=== PATIENT | male | born 1950 | race Caucasian/White ===

== ENCOUNTER → 2017-08-05 12:40 | Outpatient (CLI) | payer MEDICARE, MEDICAID, SELFPAY ==
--- NOTE | 2017-08-05 12:46 | RAD_ITS ---
STUDY: SWALLOWING STUDY REASON FOR EXAM: Male, 66 years old. Dysphagia. TECHNIQUE: The examination was performed with Speech Pathology in attendance. Under fluoroscopic observation, the patient ingested thin barium, thick barium, barium pudding, and barium coated cracker. FLUOROSCOPY TIME: 2:08 minutes/seconds. 2682 spot views were obtained. RADIOLOGIST INVOLVEMENT: Radiologist was present and providing direct supervision. COMPARISON: None. FINDINGS: The following was observed during swallowing of the various mixtures of barium: Thin Barium: Intermittent penetration with silent aspiration with ingestion of thin liquids on rapid swallows. Thick Barium: There was no evidence of aspiration or laryngeal penetration. Barium Pudding: There was no evidence of aspiration or laryngeal penetration. Barium Coated Cracker: There was no evidence of aspiration or laryngeal penetration. RAD/Swallowing Function w/Video IMPRESSION: Intermittent penetration and silent aspiration with ingestion of thin liquids. This improves with the small sips. The swallow study findings were discussed with the patient by the speech pathologist at the conclusion of the examination. Please see speech pathology report for more information and recommendations. Electronically Signed: Nate Santos MD at 14:22 EST Tel [phone], Service support ,
--- NOTE | 2017-08-05 13:00 | SP.MBSS_ITS ---
PRIMARY / SECONDARY DIAGNOSIS: dysphagia (R13.102, R13.14) REFERRING PHYSICIAN: Dr. Shahram Rosario MD CURRENT DIET: mechanical soft textures, thin liquids DENTITION: edentulous MENTAL STATUS: impaired RESPIRATORY STATUS: O2 via room air PREVIOUS MODIFIED BARIUM SWALLOW STUDY: 03/15/2015 MBS revealed moderate oropharyngeal and pharyngoesophageal dysphagia with SILENT aspiration of large sequential swallows of thin liquids 01/01/2014 MBS revealed mild to moderate dysphagia with penetration / ejection of thin and nectar consistencies REASON FOR REFERRAL: Patient is a 66 year old male who resides at a snf referred for a modified barium swallow (MBS) study to objectively assess the Patients oropharyngeal swallow function under fluoroscopy secondary to continued concerns with PO diet tolerance primarily with thin liquids, with the Patient presenting with a long history of dysphagia with silent aspiration noted during the most recent exam. Patients provided caregiver from the Patients snf in addition to the Patients primary home health speech-language pathologist present during the assessment, report the Patient is currently placed on a mechanical soft, thin liquid diet with evolving use and benefit from the chin tuck posture, with thin liquid intake via spoon (though improving tolerance from cup). Patients caregiver reports recent significant reduction in sedative medications with known deleterious effects on deglutition to include Klonopin / Clonazepam (50mg BID to 1mg qAM), Seroquel / Quetiapine (200mg to 50mg in qAM), and Depakote / Valproic acid (2-125mg tablets TID to 1-125mg tablet TID) MEDICAL HISTORY: Intellectual disability, bipolar disorder, aspiration pneumonia, angioedema, hyperlipidemia, hypothyroidism, prior history of violent behavior STUDY FINDINGS: Patient participated in a Modified Barium Swallow (MBS) study on 08/05/2017. Dr. Santos was the radiologist present for this evaluation. This study was recorded in the lateral view and images were sent to PACs for storage. The following consistencies were presented to this patient for analysis of oropharyngeal swallow function: thin liquids, nectar thickened liquids, pudding , and a regular textured, Kare[place] Do[place] cookie. Results of the MBS are as follows: PENETRATION / ASPIRATION SCALE (PEREIRA): 1 = does not enter airway 2 = enters airway/above vocal folds/ejected 3 = enters airway/above vocal folds/not ejected 4 = enters airway/contacts vocal folds/ejected 5 = enters airway/contacts vocal folds/not ejected 6 = enters airway/below vocal folds/ejected 7 = enters airway/below vocal folds/not ejected despite effort 8 = enters airway/below vocal folds/no effort VIDEOFLOROSCOPIC SCALE SCORE (PEREIRA): Grade I = aspiration of material that has penetrated into the laryngeal vestibule, intact cough reflex Grade II = aspiration < 10 % of the bolus, intact cough reflex Grade III = aspiration of < 10 % of the bolus, reduced cough reflex or aspiration of > 10 % of the bolus, intact cough reflex Grade IV = aspiration of > 10 % of the bolus, reduced cough reflex PENETRATION / ASPIRATION SCALE (SCORE) WITH VIDEOFLOROSCOPIC SCALE SCORE: Thin liquid - 5 mL tsp.: 1 Thin liquids via cup (sequential swallows): 8 - Grade III Thin liquids via cup (single sip): 5 Thin liquids via cup (single sip): 5 Thin liquids via straw (chin tuck): 2 Thin liquids via straw (chin tuck): 1 Thin liquids via straw (chin tuck): 1 Thin liquids via straw (chin tuck): 1 Thin liquids via straw (sequential swallows - chin tuck): 8 - Grade III [place] thickened liquids via cup (single sip): 5 [place] thickened liquids via cup (single sip): 7 - Grade II Pudding via spoon: 1, 8 - Grade III Pudding via spoon: 1 Regular textured cookie: could not view* Thin liquids via straw (chin tuck): could not view* * denotes difficulty with full viewing of images due to frequent movement denotes delayed cough response (3-5 seconds) denotes silent aspiration of previously penetrated material (likely nectar thickened liquids) IMPRESSION: DIAGNOSIS: moderate oropharyngeal dysphagia (R13.12) ORAL PHASE CHARACTERIZED BY: LABIAL SEAL: no labial escape (improved; however difficulty with viewing appreciated due to excessive anterior movement) TONGUE CONTROL DURING BOLUS MANIPULATION: posterior bolus escape fluctuating between less than / greater than half of bolus during thin liquid and nectar thickened liquid intake BOLUS PREPARATION / MASTICATION: slow prolonged chewing/mashing with complete recollection (improved) BOLUS TRANSPORT / LINGUAL MOTION: brisk tongue motion (improved) ORAL RESIDUE: residue collection on oral structures (primarily the posterior lingual surface) PHARYNGEAL PHASE CHARACTERIZED BY: INITIATION OF PHARYNGEAL SWALLOW: bolus head in pyriforms at first hyoid excursion during trials of thin liquid via cup; bolus head in valleculae at first hyoid excursion across remaining trials SOFT PALATE ELEVATION: no bolus between soft palate and pharyngeal wall LARYNGEAL ELEVATION: complete superior movement of thyroid cartilage with complete approximation of arytenoids cartilage to epiglottic petiole (improved) ANTERIOR HYOID EXCURSION: partial anterior movement EPIGLOTTIC MOVEMENT: complete epiglottic inversion LARYNGEAL VESTIBULE CLOSURE AT HEIGHT OF SWALLOW: intermittent incomplete laryngeal vestibule closure with narrow column of air/contrast in laryngeal vestibule PHARYNGEAL STRIPPING WAVE: pharyngeal stripping wave present / complete PHARYNGOESOPHAGEAL SEGMENT OPENING: partial distension and partial duration; partial obstruction of flow (improved) TONGUE BASE RETRACTION: trace column of contrast between tongue base and posterior pharyngeal wall (improved) PHARYNGEAL RESIDUE: intermittent collection of residue within or on pharyngeal structures (valleculae; improved) ESOPHAGEAL PHASE CHARACTERIZED BY: ESOPHAGEAL BOLUS CLEARANCE IN THE UPRIGHT POSITION: intermittent trace esophageal retention with retrograde flow below pharyngoesophageal segment ( improved) EFFECTS OF TREATMENT STRATEGIES ATTEMPTED: Chin tuck posture = effective Liquid chaser = effective Reduced bolus size = effective DIET TEXTURE RECOMMENDATIONS: Will recommend a mechanical soft textured, thin liquid diet. COMPENSATORY STRATEGIES RECOMMENDED: Supervision with assistance as needed, chin tuck primarily with thin liquids, reduced bolus volume, alternate bites and sips at reasonable intervals, avoid mixed consistencies, medications with purees INTERPRETATION OF RESULTS: Patient presents with moderate oropharyngeal dysphagia (R13.12) likely associated with a combination of mechanical factors (moderate minimal obstructive cricopharyngeal bar), iatrogenic factors, and complicated by baseline Intellectual disability. Oral phase primarily marked by suboptimal lingual control resulting in frequent posterior bolus loss prior to swallow onset contributing to prandial and pre-prandial penetration and aspiration; and mastication inefficiency (mild; albeit effective). Pharyngeal phase primarily marked by delayed pharyngeal swallow onset timing resulting in suboptimal bolus location upon swallow onset; reduced closure of the airway during deglutition attributed to reduced anterior hyoid excursion resulting in inconsistent laryngeal vestibule closure / pressure; all contributing to prandial penetration and aspiration of thin liquids without reduction in bolus size and execution of the chin tuck posture. Inconsistent laryngeal vestibule pressure generated to consistently expel penetrated material. Noted insufficient and inconsistent cough response to expel penetrated material / laryngotracheal aspiration. 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 Overall improved pharyngeal motility in comparison to the previous study. All deficits ameliorated sufficiently with bolus volume adjustments and execution of the chin tuck posture. Patient noted to SILENTLY aspirate with thin liquids, and suspected to SILENTLY aspirate previously penetrated nectar thickened liquids during succeeding trials, with clinical assessment at bedside relying on identification of classic overt signs and symptoms of aspiration unreliable. RECOMMENDATIONS: Recommendations for continued thin liquid diet texture placement made in part due to the Patients reported improved adherence to recommendations with familiar individuals (as reported by staff members familiar with the Patient), the Patients tendency to aspirate with nectar thickened liquids and previous intolerance of aspiration of thickened liquids, though would encourage caution if the Patient is unable to reliably execute recommended aspiration precautions , as the Patient is at higher risk of pulmonary complications due to the continued presence of silent aspiration. Recommend considering a modified [place] Free Water Protocol (FFWP), with frequent oral care and preference for thin liquid water to maintain the integrity of the oral mucosa and reduce overall risk of harmful oral pathogens and subsequent aspiration of oral bacteria. Patient requires intensive skilled speech-language intervention targeting continued diet texture management; training and implementation of recommended compensatory strategies; training, implementation, and Patient education regarding implementation of a modified FFWP as needed; and caregiver training targeting meal preparation / aspiration precautions to ensure sufficient execution, though caregivers appearing to demonstrate excellent awareness and comprehension. ADDITIONAL COMMENTS/RECOMMENDATIONS: Results and recommendations were discussed with the Patient and Patients caregivers immediately following MBS completion, with all verbalizing understanding and agreement with all recommendations and education provided. Both the Patient and the Patient's caregiver requesting this clinician to relay results to the Patients green building engineer post session. IMAGE COUNT: [id number] G-CODES: SWALLOWING [id number] Current Status: CJ SWALLOWING [id number] Goal Status: CI SWALLOWING [id number] Discharge Status: CJ
== END ==
PROVIDERS: Family Provider Family Medicine Geriatric Medicine; PCP Family Medicine Geriatric Medicine; Visit Provider Family Medicine Geriatric Medicine
DX: Z87.19 Personal history of other diseases of the digestive system (principal)
CPT/HCPCS: 74230; 92611; G8996; G8997; G8998

== ENCOUNTER → 2018-01-28 15:05 | Outpatient (CLI) | payer MEDICARE, MEDICAID, SELFPAY ==
[2018-01-28 15:34] LABS: Absolute Lymphocyte Count 1.96 X10^3/ul (0.83-4.51); Absolute Neutrophil Count 2.7 X10^3/uL (2.0-7.7); Basophil# 0.02 X10^3/uL; Basophil% 0.4 % (0-1); Eosinophil# 0.03 X10^3/uL; Eosinophils% 0.6 % (0-5); Hematocrit 42.1 % (40-54); Hemoglobin 14.3 g/dl (13.0-16.5); Lymphocyte # 1.96 X10^3/ul (4.0); Lymphocyte % 37.8 % (19-41); Mean Corpuscular Hgb 30.9 pg (27.0-32.0); Mean Corpuscular Volume 90.9 fL (80-94); Mean Platelet Vol. 10.4 fl (6.2-12.0); Monocyte# 0.52 X10^3/uL; Neutrophil # 2.65 X10^3/uL (2.7-7.7); Platelet Count 258 K/mm3 (150-450); RBC Distribution Width CV 13.4 % (11.6-14.6); RBC Distribution Width SD 44.3 fl (35.1-43.9); Red Blood Count 4.63 M/mm3 (4.6-6.2); White Blood Count 5.2 K/mm3 (4.4-11.0)
[2018-01-28 15:41] LABS: POSITIVE COUNT NO; POSITIVE DIFFERENTIAL NO; POSITIVE MORPHOLOGY NO
== END ==
PROVIDERS: Family Provider Family Medicine Geriatric Medicine; PCP Family Medicine Geriatric Medicine; Visit Provider Family Medicine Geriatric Medicine
DX: R50.9 Fever, unspecified (principal)
CPT/HCPCS: 36415; 74018; 85025; 87040; 87086; 87633

== ENCOUNTER → 2018-02-20 07:34 | Outpatient (CLI) | payer MEDICARE, MEDICAID, SELFPAY ==
[2018-02-20 07:58] LABS: Platelet Count 231 K/mm3 (150-450)
[2018-02-20 08:21] LABS: AST(SGOT) 17 U/L (15-37); Alanine Aminotransfer ALT/SGPT 17 U/L (16-61); Valproic Acid (Depakene) Level 55 ug/mL (50-100)
== END ==
PROVIDERS: Family Provider Family Medicine Geriatric Medicine; PCP Family Medicine Geriatric Medicine; Visit Provider Psychiatry & Neurology Psychiatry
DX: Z79.899 Other long term (current) drug therapy (principal)
CPT/HCPCS: 36415; 80164; 84450; 84460; 85049

== ENCOUNTER → 2018-03-04 14:11 | Outpatient (CLI) | payer MEDICARE, MEDICAID, SELFPAY ==
[2018-03-04 16:29] LABS: Absolute Lymphocyte Count 2.77 X10^3/ul (0.83-4.51); Absolute Neutrophil Count 2.5 X10^3/uL (2.0-7.7); Basophil# 0.04 X10^3/uL; Basophil% 0.7 % (0-1); Eosinophils% 1.6 % (0-5); Hematocrit 42.4 % (40-54); Hemoglobin 14.2 g/dl (13.0-16.5); Lymphocyte # 2.77 X10^3/ul (4.0); Lymphocyte % 45.5 % (19-41); Mean Corp Hgb Conc 33.5 g/gl (32-36); Mean Corpuscular Hgb 30.6 pg (27.0-32.0); Mean Corpuscular Volume 91.4 fL (80-94); Mean Platelet Vol. 10.9 fl (6.2-12.0); Monocyte# 0.67 X10^3/uL; Platelet Count 252 K/mm3 (150-450); RBC Distribution Width CV 13.6 % (11.6-14.6); RBC Distribution Width SD 44.8 fl (35.1-43.9); Red Blood Count 4.64 M/mm3 (4.6-6.2); White Blood Count 6.1 K/mm3 (4.4-11.0)
[2018-03-04 16:33] LABS: Vitamin D,25 Hydroxy 12.9 ng/mL (29.95-100.01)
[2018-03-04 16:37] LABS: POSITIVE COUNT NO; POSITIVE DIFFERENTIAL NO; POSITIVE MORPHOLOGY NO
[2018-03-04 16:41] LABS: ALB/GLOB Ratio 0.8 RATIO (0.9-2.4); AST(SGOT) 17 U/L (15-37); Alanine Aminotransfer ALT/SGPT 19 U/L (16-61); Albumin, Serum 3.5 g/dL (3.2-5.0); Alkaline Phosphatase 123 U/L (45-117); Anion Gap 6 (5-15); BUN 7 mg/dL (7-18); BUN/Creat Ratio 8.1 RATIO (10-20); Calcium,Total 8.7 mg/dL (8.5-10.1); Chloride 104 mmol/L (98-107); Creatinine, Serum 0.87 mg/dL (0.70-1.30); EST Glomerular Filtration Rate 93 mL/min (>60); Est Glom Filt Rate - Afr Amer 113 mL/min (>60); Globulin 4.4 g/dL (2.2-4.2); Glucose 76 mg/dL (74-106); PSA,Total - Annual Screen 1.78 ng/mL (0.00-4.00); Potassium 3.4 mmol/L (3.5-5.1); Protein, Total 7.9 g/dL (6.4-8.2); Sodium Level 141 mmol/L (136-145); Thyroid Stim Hormone (TSH) 0.12 uIU/mL (0.358-3.74)
[2018-03-07 09:32] LABS: Hep C Antibodies <0.1 s/co ratio (0.0-0.9)
== END ==
PROVIDERS: Family Provider Family Medicine Geriatric Medicine; PCP Family Medicine Geriatric Medicine; Visit Provider Family Medicine Geriatric Medicine
DX: E55.9 Vitamin D deficiency, unspecified (principal); R53.83 Other fatigue; Z12.5 Encounter for screening for malignant neoplasm of prostate; Z13.89 Encounter for screening for other disorder
CPT/HCPCS: 36415; 80053; 82306; 84153; 84443; 85025; 86803; G0103

== ENCOUNTER → 2018-03-28 08:43 | Outpatient (CLI) | payer MEDICARE, MEDICAID, SELFPAY ==
[2018-03-28 09:55] LABS: Anion Gap 6 (5-15); BUN 7 mg/dL (7-18); BUN/Creat Ratio 10.1 RATIO (10-20); Calcium,Total 8.1 mg/dL (8.5-10.1); Chloride 107 mmol/L (98-107); Creatinine, Serum 0.69 mg/dL (0.70-1.30); EST Glomerular Filtration Rate 121 mL/min (>60); Est Glom Filt Rate - Afr Amer 147 mL/min (>60); Glucose 81 mg/dL (74-106); Potassium 3.8 mmol/L (3.5-5.1); Sodium Level 145 mmol/L (136-145)
== END ==
PROVIDERS: Family Provider Family Medicine Geriatric Medicine; PCP Family Medicine Geriatric Medicine; Referring Provider Family Medicine Geriatric Medicine; Visit Provider Family Medicine Geriatric Medicine
DX: E87.6 Hypokalemia (principal)
CPT/HCPCS: 36415; 80048

== ENCOUNTER 2018-04-30 08:00 | Outpatient (RCR) | payer MEDICARE, MEDICAID, SELFPAY ==
--- NOTE | 2018-03-26 11:07 | HP.OTEVAL_ITS ---
Patient's Visit Information BRY BANERJEE is a 67 year old M, referred to Occupational Therapy by Goran Rosario, with a diagnosis of Parkinson Disease. Date of Evaluation: 03/26/18 Occupational Therapist: Mónica Beck - Subjective Subjective: Pt seen for initial occupational therapy evaluation for generalized decreased BUE strength and decreased independence with self feeding skills demonstrating increased spillage of food with increased fatigue to hold silverware and to get food to his mouth. Pt has diagnosis of Parkinson's. He lives in a nursing home with one roomate and has 24hr care. He requires assist with all BADL's. He participates with workshop during the day. AMB no device with hand held assist. Uses a heavy ceramic bowl for eatting and switches between regular silverware and weighted silverware. Pt is right hand dominent. - Objective Objective/Observation: Pt's caregiver states decreased independence with self feeding skills and increased fatigue with self feeding. - ROM ROM Comments: BUE WFL - Strength Strength Comments: Pt unable to follow directions to complete MMT secondary to cognitive status. Pt was able to push therapists hands down towards floor demonstrating decreased generalized BUE strength. - Edema Other: No edema noted - Sensation Sensation Comments: Unknown, pt unable to understand question secondary to decreased cognition - DASH-Disabilities of Arm, Shoulder& Hand DASH Sum: 120 - Goals Goal:: Pt will demo increased BUE strength 4/5 to assist with BADL's and functional transfers. Goal:: Pt will be able to complete self feeding tasks with SBA level with moderate verbal cues needed to initate and complete tasks correctly with minimal spillage of food in 3/4 trials Goal:: Pt/caregiver will be educated on self feeding techniques and adaptive equipment to assist with self feeding skills to increase pt's quality of life with 75% accuracy. Goal:: Pt/caregive will be educated on BUE HEP with good understanding and demo 75% x. Goal:: Pt/caregive will be educated on DME/AE to assist with BADLs with increased safety as well as education on adaptive technqiues and compensatory strategies to assist with BADLs to increase pts quality of life with good understanding and demo 100%x. - Rehabilitation General Assessment: Pt demonstrated decreased generalied BUE strength and decreased independence with self feeding tasks. Pt would benefit from direct occupational therapy services to increase BUE strength, educate pt's caregivers on BUE HEP, increase independence with self feeding tasks, educate staff on DME/AE to increase independence and safety with BADLs as well as adaptive techniques, compensatory strategies, cues needed to assist with BADLs to increase pt's independence and quality of life. Rehabilitation Potential: Good - Anticipated Interventions Anticipated Interventions: Strengthening, Joint Protection/Energy Conservation, Fine Motor Coord/Jaime, ADL Training, Education re assistive Equipment, Caregiver Training, Home Program - Visit Plan Frequency: 1-2x /Week Duration: 4-6 Weeks General Plan: Pt would benefit from direct occupational therapy services to increase BUE strength, educate pt's caregivers on BUE HEP, increase independence with self feeding tasks, educate staff on DME/AE to increase independence and safety with BADLs as well as adaptive techniques, compensatory strategies, cues needed to assist with BADLs to increase pt's independence and quality of life. TEXT: Thank you for the opportunity to evaluate your patient. For Medicare and Medicare HMO plans, please review the plan of care and approve it. It will need to be FAXED BACK to us at [phone] for Medicare purposes. Please let me know if there are questions or concerns regarding this plan of care. Physician Signature: Date:
--- NOTE | 2018-03-26 16:02 | HP.PTEVAL_ITS ---
Patient's Visit Information BRY BANERJEE is a 67 year old M referred to Physical Therapy by Goran Rosario with a diagnosis of Parkinson's Disease. Date of Evaluation: 03/26/18 Physical Therapist: Morena Cortez - Visit Plan Frequency: 2x /Week Duration: 4 Weeks Plan: Gait belt. Focus on LE strength, balance, walking endurance while encouraging neck and trunk upright-work on posture exercises. - Subjective Subjective: Caregiver is unsure of when pt. was diagnosed with Parkinson's Disease. Sometimes doing well, sometimes lethargic; comes in cycles. Caregiver states that pt. needs a gait belt because gets off balance. Falling back asleep in the morning. Cannot pick up operator spoon. Times when gait is off, knees buckle and forward leaning. Pt. is frustrated when he cannot hold spoon, so sometimes does not want to eat. Eats better with regular spoon vs. heavy. Heavy bowls. This week has been good. Sometimes so lethargic and drooling, that caregivers have to keep pt. awake. Pt. and caregivers are afraid of pt. falling. Pt. slouches forward and has no energy to keep upright. Neck, back and head hurt. Caregiver states that pt. is intectually very bright and will throw fits trying to get what he wants. Needs to build up arm strength. Does not want to be fully reliant on staff for feeding. Pt. resident at [facility] through [place]. 31/12 supervision. Takes a while to get out chair, uses hands of caregiver for assistance and to steady gait. Tries to play duck duck goose and leans forward. Difficult time using restroom. Complete help showering. Attends work shop, draws, crafts, field trips, activities- no PT/OT. Aggressive behavior in past at work shop. Uses wheelchair for long distances. Sometimes needs to stop when walking due to fatigue. Loves to sit outside when weather warm. Does not sit still, constantly up and moving. Neurologist appointment a week from Saturday. Ramp at residential. Some steps into van is difficult due to unsteadiness. Fell on hands and knees from running forward at workshop last month. Also recently fell in the morning at the table and hit head from being top heavy. Sometimes, neck, head, and back hurt from slouching; takes Tylenol. HADLEY maybe twice a week from slouching. Will cry to get what he wants. Cannot put on socks, but can put on slippers. Able to navigate residential. Staff cooks, cleans, laundry. Pt. can carry cup around to sink and light activity. Sleep well at nights, but gets up between 9-12 to look for caregiver's car and gets upset when she leaves. Taking melatonin, nasapam. Caregiver has experience with taking pt. through exercise. Pt. able to run, but leans forward significantly. PMH: UTI not too long ago, thryoid, taking potassium. No pain medication, see chart for medication list. Goals: balance, strength, endurance, upright posture. - Objective Gait: ambulates with gait belt and contact guard for steadiness. Forward flexed neck and trunk, normal cynthia. Stairs: ascend stairs reciprocally with 2 HR and contact guard with gait belt, decreased speed but good form. Descend stairs step to pattern 2 HR and min A with gait belt; verbal cues to keep hand on rail. AROM: cervical ext. to neutral, flex. WNL, rotation limited 50%, lumbar flex. WNL, LE WFL. PROM: shoulder flex., abd., IR/ER WFL. Able to heel raise with demonstration; difficulty understanding toe raise and SL balance demonstration and instruction. Strength: LE approx 4/5 throughout; core poor. Flexibility: hamstring and gastroc moderate restriction. - Goals Goal 1:: Pt. will be I with HEP and progressions. Goal Time Frame: 4-6 Weeks Goal 2:: Pt. will increase LE strength to 4+/5. Goal Time Frame: 4-6 Weeks Goal 3:: Pt. will demonstrate correct upright posture throughout treatment session. Goal Time Frame: 4-6 Weeks Goal 4:: Pt. will demonstrate modified single leg stance for 10 seconds bilaterally. Goal Time Frame: 4-6 Weeks Goal 5:: Pt. will ambulate 350' without stopping with contact guard and no device. Goal Time Frame: 4-6 Weeks - Rehabilitation Potential Physical Therapy Diagnosis: Pt. presents with hypomobility. Poor neck and trunk posture, decreased balance, LE strength, and endurance limiting pt. from self care tasks and safe functional mobility. Rehabilitation Potential: Fair - Anticipated Interventions Patient/Client Instruction: Educate patient on: Benefits of Fitness Program For the Purpose of:: To improve nutrient delivery to tissue Therapeutic Exercise to Include: Strength training, Power training, Endurance training, Balance training, Postural training, Flexibilty training, Gait and locomotor training, Dynamic Lumbar Stabilization, Scapular Strength/Stabilization For the Purpose of:: To increase ROM, To improve muscle performance and motor function, To improve ability to perform ADL's, To increase flexibility/ROM, To improve endurance, To improve balance, To improve safety with gait, To improve safety Cryotherapy (ice pack, ice massage): Yes Thermo therapy (hot pack): Yes For the Purpose of:: To decrease pain Thank you for the opportunity to evaluate your patient. For Medicare and Medicare HMO plans, please review the plan of care and approve it. It will need to be FAXED BACK to us at [phone] for Medicare purposes. Please let me know if there are questions or concerns regarding this plan of care. Physician Signature: __Date:
--- NOTE | 2018-04-16 13:36 | HP.OTDCSUM_ITS ---
HP - OT D/C Summary It has been my pleasure to treat BRY BANERJEE under orders from Goran Rosario, for the diagnosis of Parkinson Disease for a total of 6 visit(s). Please see the following information for a summary of their discharge status. - Objective Objective/Function: increase BUE strength and independence with self feeding skills - Goals Patient Goals: Regain Strength, Improve Fine Motor Skills, Use Hand/Wrist/Arm Normally Again, Be More Independent in ADLS, Resume Former Household Responsibilities (Cooking,Cleaning,Yard, etc.), Resume Hobbies Goal:: Pt will demo increased BUE strength 4/5 to assist with BADL's and functional transfers. Goal:: Pt will be able to complete self feeding tasks with SBA level with moderate verbal cues needed to initate and complete tasks correctly with minimal spillage of food in 3/4 trials Goal:: Pt/caregiver will be educated on self feeding techniques and adaptive equipment to assist with self feeding skills to increase pt's quality of life w ith 75% accuracy. Goal:: Pt/caregive will be educated on BUE HEP with good understanding and demo 75% x. Goal:: Pt/caregive will be educated on DME/AE to assist with BADLs with increased safety as well as education on adaptive technqiues and compensatory strategies to assist with BADLs to increase pts quality of life with good understanding and demo 100%x. - Plan Plan: d/c OT services. Pt unable to understand DASH to complete for d/c. - D/C Information Discharge Comments: Pt has progressed with BUE strengthening activities and exercises. Pt and staff member have been educated on BUE HEP with yellow theraband with good understanding and demo. Pt and staff member have been educated on adaptive techniques, compensatory strategies and different AE to assist with self feeding skills and BADLs with good understanding and demo. Staff member states he is doing better with self feeding using regular utensils still requiring minimall assist to scoop food towards the end. Pt unable to understand MMT and complete formal MMT for d/c, however pt progressing with amount of exercises completed using 2# and using arm bike for longer amount of time to indicate increased BUE strength. At this time pt demo no need for further skilled OT interventions. D/C OT services. If there are questions or concerns regarding this patient's occupational therapy, please fell free to call me at [phone]. Thank you for the referral of this patient. Sincerely, Mónica Beck
--- NOTE | 2018-04-30 08:35 | HP.PTDCSUM_ITS ---
HP - PT D/C Summary It has been my pleasure to treat BRY BANERJEE under orders from Goran Rosario, for the diagnosis of Parkinson's Disease for a total of 9 visit(s). Discharge Date: Please see the following information for a summary of their discharge status. - Subjective Subjective: Patient caregiver reports that he likes to do exercises at home. No falls since start of PT at home. No stairs at home- but the staff watches him around curbs and getting in/out of the van. Does not want to backwards. - Objective Objective/Function: Gait: ambulates indpendently with SBA from caregiver but does not reach for her as he did at initial evaluation. Forward flexed neck and trunk, normal cynthia. Stairs: ascend stairs reciprocally with 2 HR SBA Descend stairs step to pattern 2 HR and CGA; verbal cues to keep hand on rail. AROM: cervical ext. to neutral, flex. WNL, rotation limited 50%, lumbar flex. WNL, LE WFL. PROM: shoulder flex., abd., IR/ER WFL. Able to heel raise with demonstration Strength: LE approx 4+/5 throughout; core fair. Flexibility: hams tring and gastroc moderate restriction. - Goals Goal 1:: Pt. will be I with HEP and progressions. Goal Progress: Goal Met Goal 2:: Pt. will increase LE strength to 4+/5. Goal Progress: Goal Met Goal 3:: Pt. will demonstrate correct upright posture throughout treatment session. Goal Progress: Progressing Goal 4:: Pt. will demonstrate modified single leg stance for 10 seconds bilaterally. Goal Progress: Progressing Goal 5:: Pt. will ambulate 350' without stopping with contact guard and no device. Goal Progress: Goal Met - Plan Plan: Discharge to I HEP - D/C Information If there are questions or concerns regarding this patient's physical therapy, please feel free to call me at [phone]. Thank you for the referral of this patient. Sincerely, Morena Cortez
== END 2018-04-30 19:01 | disposition home or self-care (01) ==
LOC: PT 08:00
PROVIDERS: Family Provider Family Medicine Geriatric Medicine; PCP Family Medicine Geriatric Medicine; Referring Provider Family Medicine Geriatric Medicine; Visit Provider Family Medicine Geriatric Medicine
DX: G20 Parkinson's disease (principal)
CPT/HCPCS: 97110; 97162; 97164; 97165; 97166; 97530

== ENCOUNTER → 2018-05-14 09:01 | Outpatient (CLI) | payer MEDICARE, MEDICAID, SELFPAY | PROVIDERS: Family Provider Family Medicine Geriatric Medicine; PCP Family Medicine Geriatric Medicine; Referring Provider Family Medicine Geriatric Medicine; Visit Provider Family Medicine Geriatric Medicine | DX: E03.9 Hypothyroidism, unspecified (principal) | CPT/HCPCS: 36415; 84443 ==

== ENCOUNTER → 2018-08-26 08:32 | Outpatient (CLI) | payer MEDICARE, MEDICAID, SELFPAY ==
[2018-08-26 10:25] LABS: Platelet Count 236 K/mm3 (150-450)
[2018-08-26 10:48] LABS: Valproic Acid (Depakene) Level 42 ug/mL (50-100)
[2018-08-26 10:50] LABS: AST(SGOT) 23 U/L (15-37); Alanine Aminotransfer ALT/SGPT 21 U/L (16-61)
== END ==
PROVIDERS: Family Provider Family Medicine Geriatric Medicine; PCP Family Medicine Geriatric Medicine; Referring Provider Psychiatry & Neurology Psychiatry; Visit Provider Psychiatry & Neurology Psychiatry
DX: R53.83 Other fatigue (principal); F19.10 Other psychoactive substance abuse, uncomplicated; Z79.899 Other long term (current) drug therapy
CPT/HCPCS: 36415; 80164; 84450; 84460; 85049

== ENCOUNTER → 2018-09-03 13:12 | Outpatient (CLI) | payer MEDICARE, MEDICAID, SELFPAY ==
[2018-09-03 15:36] LABS: Absolute Lymphocyte Count 2.23 X10^3/ul (0.83-4.51); Absolute Neutrophil Count 2.5 X10^3/uL (2.0-7.7); Basophil# 0.02 X10^3/uL; Basophil% 0.4 % (0-1); Eosinophil# 0.06 X10^3/uL; Eosinophils% 1.1 % (0-5); Hematocrit 43.2 % (40-54); Hemoglobin 13.8 g/dl (13.0-16.5); Lymphocyte # 2.23 X10^3/ul (4.0); Lymphocyte % 41.8 % (19-41); Mean Corp Hgb Conc 31.9 g/gl (32-36); Mean Corpuscular Hgb 30.1 pg (27.0-32.0); Mean Corpuscular Volume 94.1 fL (80-94); Mean Platelet Vol. 10.4 fl (6.2-12.0); Monocyte# 0.56 X10^3/uL; Monocyte% 10.5 % (0-10); Neutrophil # 2.46 X10^3/uL (2.7-7.7); Platelet Count 233 K/mm3 (150-450); RBC Distribution Width CV 13.8 % (11.6-14.6); RBC Distribution Width SD 47.5 fl (35.1-43.9); Red Blood Count 4.59 M/mm3 (4.6-6.2); White Blood Count 5.3 K/mm3 (4.4-11.0)
[2018-09-03 15:49] LABS: POSITIVE COUNT NO; POSITIVE DIFFERENTIAL NO; POSITIVE MORPHOLOGY NO
[2018-09-03 16:08] LABS: ALB/GLOB Ratio 0.9 RATIO (0.9-2.4); AST(SGOT) 18 U/L (15-37); Alanine Aminotransfer ALT/SGPT 20 U/L (16-61); Albumin, Serum 3.7 g/dL (3.2-5.0); Alkaline Phosphatase 100 U/L (45-117); Anion Gap 6 (5-15); BUN 9 mg/dL (7-18); BUN/Creat Ratio 9.6 RATIO (10-20); Calcium,Total 8.4 mg/dL (8.5-10.1); Chloride 106 mmol/L (98-107); Creatinine, Serum 0.93 mg/dL (0.70-1.30); EST Glomerular Filtration Rate 86 mL/min (>60); Est Glom Filt Rate - Afr Amer 104 mL/min (>60); Glucose 80 mg/dL (74-106); Potassium 3.6 mmol/L (3.5-5.1); Protein, Total 7.7 g/dL (6.4-8.2); Sodium Level 143 mmol/L (136-145); Thyroid Stim Hormone (TSH) 2.64 uIU/mL (0.358-3.74)
[2018-09-03 16:09] LABS: Vitamin D,25 Hydroxy 72.6 ng/mL (29.95-100.01)
== END ==
PROVIDERS: Family Provider Family Medicine Geriatric Medicine; PCP Family Medicine Geriatric Medicine; Visit Provider Family Medicine Geriatric Medicine
DX: E55.9 Vitamin D deficiency, unspecified (principal); R53.83 Other fatigue
CPT/HCPCS: 36415; 80053; 82306; 84443; 85025

== ENCOUNTER → 2019-02-13 | Outpatient (CLI) | payer MEDICARE, MEDICAID, SELFPAY ==
[2019-02-13 12:56] LABS: Absolute Lymphocyte Count 2.25 X10^3/uL (0.83-4.51); Absolute Neutrophil Count 1.5 X10^3/uL (2.0-7.7); Basophil# 0.03 X10^3/uL; Basophil% 0.7 % (0-1); Eosinophil# 0.05 X10^3/uL; Eosinophils% 1.2 % (0-5); Hematocrit 45.4 % (40-54); Lymphocyte # 2.25 X10^3/ul (4.0); Lymphocyte % 52.8 % (19-41); Mean Corpuscular Hgb 30.5 pg (27.0-32.0); Mean Corpuscular Volume 92.5 fL (80-94); Mean Platelet Vol. 10.4 fl (6.2-12.0); Monocyte% 9.4 % (0-10); NRBC Flagged by Analyzer 0 % (0-5); Neutrophil # 1.52 X10^3/uL (2.7-7.7); Neutrophil % 35.7 % (47-70); Platelet Count 216 K/mm3 (150-450); RBC Distribution Width CV 12.9 % (11.6-14.6); RBC Distribution Width SD 44.2 fl (35.1-43.9); Red Blood Count 4.91 M/mm3 (4.6-6.2); White Blood Count 4.3 K/mm3 (4.4-11.0)
[2019-02-13 13:21] LABS: ALB/GLOB Ratio 0.8 RATIO (0.9-2.4); AST(SGOT) 22 U/L (15-37); Alanine Aminotransfer ALT/SGPT 21 U/L (16-61); Albumin, Serum 3.6 g/dL (3.2-5.0); Alkaline Phosphatase 112 U/L (45-117); Anion Gap 4 (5-15); BUN 13 mg/dL (7-18); BUN/Creat Ratio 13.4 RATIO (10-20); Calcium,Total 8.9 mg/dL (8.5-10.1); Chloride 103 mmol/L (98-107); Creatinine, Serum 0.97 mg/dL (0.70-1.30); EST Glomerular Filtration Rate 82 mL/min (>60); Est Glom Filt Rate - Afr Amer 99 mL/min (>60); Globulin 4.7 g/dL (2.2-4.2); Glucose 85 mg/dL (74-106); Potassium 3.6 mmol/L (3.5-5.1); Protein, Total 8.3 g/dL (6.4-8.2); Sodium Level 139 mmol/L (136-145)
== END | disposition home or self-care (01) ==
PROVIDERS: Family Provider Family Medicine Geriatric Medicine; PCP Family Medicine Geriatric Medicine; Visit Provider Family Medicine Geriatric Medicine
DX: R40.0 Somnolence (principal)
CPT/HCPCS: 36415; 80053; 84443; 85025

== ENCOUNTER → 2019-02-18 | Outpatient (CLI) | payer MEDICARE, MEDICAID, SELFPAY ==
[2019-02-18 09:40] LABS: Platelet Count 231 K/mm3 (150-450)
[2019-02-18 10:10] LABS: AST(SGOT) 19 U/L (15-37); Alanine Aminotransfer ALT/SGPT 19 U/L (16-61)
[2019-02-18 10:21] LABS: Valproic Acid (Depakene) Level 53 ug/mL (50-100)
== END | disposition home or self-care (01) ==
PROVIDERS: Family Provider Family Medicine Geriatric Medicine; PCP Family Medicine Geriatric Medicine; Referring Provider Psychiatry & Neurology Psychiatry; Visit Provider Psychiatry & Neurology Psychiatry
DX: Z79.899 Other long term (current) drug therapy (principal)
CPT/HCPCS: 36415; 80164; 82140; 84450; 84460; 85049

== ENCOUNTER → 2019-03-05 | Outpatient (CLI) | payer MEDICARE, MEDICAID, SELFPAY ==
[2019-03-05 11:44] LABS: Absolute Neutrophil Count 2.2 X10^3/uL (2.0-7.7); Basophil# 0.04 X10^3/uL; Basophil% 0.8 % (0-1); Eosinophil# 0.06 X10^3/uL; Eosinophils% 1.2 % (0-5); Hematocrit 47.3 % (40-54); Hemoglobin 15.4 g/dL (13.0-16.5); Lymphocyte % 47.2 % (19-41); Mean Corp Hgb Conc 32.6 g/dL (32-36); Mean Platelet Vol. 11.1 fl (6.2-12.0); Monocyte# 0.41 X10^3/uL; Monocyte% 8.1 % (0-10); NRBC Flagged by Analyzer 0 % (0-5); Neutrophil # 2.17 X10^3/uL (2.7-7.7); Neutrophil % 42.5 % (47-70); Platelet Count 251 K/mm3 (150-450); RBC Distribution Width CV 13.1 % (11.6-14.6); RBC Distribution Width SD 44.5 fl (35.1-43.9); Red Blood Count 5.14 M/mm3 (4.6-6.2); White Blood Count 5.1 K/mm3 (4.4-11.0)
[2019-03-05 12:03] LABS: ALB/GLOB Ratio 0.8 RATIO (0.9-2.4); AST(SGOT) 22 U/L (15-37); Alanine Aminotransfer ALT/SGPT 22 U/L (16-61); Albumin, Serum 3.9 g/dL (3.2-5.0); Alkaline Phosphatase 150 U/L (45-117); Anion Gap 5 (5-15); BUN 7 mg/dL (7-18); BUN/Creat Ratio 6.9 RATIO (10-20); Calcium,Total 9.6 mg/dL (8.5-10.1); Chloride 104 mmol/L (98-107); Creatinine, Serum 1.01 mg/dL (0.70-1.30); EST Glomerular Filtration Rate 78 mL/min (>60); Est Glom Filt Rate - Afr Amer 94 mL/min (>60); Glucose 86 mg/dL (74-106); PSA,Total - Annual Screen 2.29 ng/mL (0.00-4.00); Potassium 3.8 mmol/L (3.5-5.1); Protein, Total 8.9 g/dL (6.4-8.2); Sodium Level 139 mmol/L (136-145); Thyroid Stim Hormone (TSH) 3.61 uIU/mL (0.358-3.74)
== END | disposition home or self-care (01) ==
LOC: POLAB3 09:21
PROVIDERS: Family Provider Family Medicine Geriatric Medicine; PCP Family Medicine Geriatric Medicine; Visit Provider Family Medicine Geriatric Medicine
DX: E55.9 Vitamin D deficiency, unspecified (principal); R53.83 Other fatigue; Z12.5 Encounter for screening for malignant neoplasm of prostate
CPT/HCPCS: 36415; 80053; 82306; 84153; 84443; 85025; G0103

== ENCOUNTER → 2019-07-10 08:38 | Outpatient (CLI) | payer MEDICARE, MEDICAID, SELFPAY ==
[2019-07-10 09:36] LABS: AST(SGOT) 13 U/L (15-37); Alanine Aminotransfer ALT/SGPT 12 U/L (16-61)
[2019-07-10 09:38] LABS: Platelet Count 191 K/mm3 (150-450)
[2019-07-10 09:46] LABS: Valproic Acid (Depakene) Level 63 ug/mL (50-100)
== END ==
PROVIDERS: PCP Family Medicine Geriatric Medicine; Referring Provider Psychiatry & Neurology Psychiatry; Visit Provider Psychiatry & Neurology Psychiatry
DX: F19.10 Other psychoactive substance abuse, uncomplicated (principal); R53.83 Other fatigue; Z79.899 Other long term (current) drug therapy
CPT/HCPCS: 36415; 80164; 82140; 84450; 84460; 85049

== ENCOUNTER 2019-07-24 13:24 | Inpatient (IN) | payer MEDICARE, MEDICAID, SELFPAY ==
[2019-07-24] VITALS (10 sets, daily range): BP systolic 93–122; BP diastolic 60–72; PULSE 61–82; RESP 10–18; TEMP 36.1–36.2; O2SAT 95–100; BMI 24.1; BMI 24.2
--- NOTE | 2019-07-24 13:52 | CT_ITS ---
STUDY: CT BRAIN WITHOUT CONTRAST REASON FOR EXAM: Male, 68 years old. ALTERED MENTAL STATUS RADIATION DOSAGE (If Supplied By Facility): CTDIvol = ( 44.99 ) mGy, DLP = ( 796.11 ) mGycm TECHNIQUE: Transaxial CT imaging of the brain was performed without administration of intravenous contrast material. Individualized dose optimization techniques were used for this CT. COMPARISON: Comparison is made with prior study April 11, 2016. FINDINGS: Normal soft tissue structures. Normal calvarium. Normal size ventricles and extra-axial spaces for the patient''s age. Normal white matter tracts of the cerebral hemispheres. Normal basal ganglia and thalami. Normal brainstem. Normal cerebellum. There is no intracranial hemorrhage. There are no findings of an acute ischemic infarction. Normal visualized paranasal sinuses. CT/Brain/Head without Contrast IMPRESSION: Normal unenhanced CT scan of the brain. Electronically Signed: Nate Santos, at 14:31 EST , Service support ,
--- NOTE | 2019-07-24 13:53 | EKG12_ITS ---
Test Reason : ALTERED LOC Blood Pressure : / mmHG Vent. Rate : 069 BPM Atrial Rate : 069 BPM P-R Int : 144 ms QRS Dur : 094 ms QT Int : 408 ms P-R-T Axes : 061 065 076 degrees QTc Int : 437 ms Normal sinus rhythm with sinus arrhythmia Normal ECG Confirmed by HANDY KING ([id number]), loan expeditor LURDES KENNEDY ([id number]) on 07/27/2019 3:38:51 PM Referred By: ANDREINA Confirmed By:HANDY KING
[2019-07-24 14:07] LABS: Absolute Lymphocyte Count 1.33 X10^3/uL (0.83-4.51); Absolute Neutrophil Count 3.8 X10^3/uL (2.0-7.7); Basophil# 0.02 X10^3/uL; Basophil% 0.3 % (0-1); Eosinophil# 0.01 X10^3/uL; Eosinophils% 0.2 % (0-5); Hematocrit 41.5 % (40-54); Hemoglobin 13.4 g/dL (13.0-16.5); Lymphocyte # 1.33 X10^3/ul (4.0); Lymphocyte % 23.2 % (19-41); Mean Corp Hgb Conc 32.3 g/dL (32-36); Mean Platelet Vol. 10.9 fl (6.2-12.0); Monocyte# 0.59 X10^3/uL; Monocyte% 10.3 % (0-10); NRBC Flagged by Analyzer 0 % (0-5); Neutrophil # 3.78 X10^3/uL (2.7-7.7); Neutrophil % 65.8 % (47-70); Platelet Count 152 K/mm3 (150-450); RBC Distribution Width CV 13.4 % (11.6-14.6); RBC Distribution Width SD 45.8 fl (35.1-43.9); Red Blood Count 4.46 M/mm3 (4.6-6.2); White Blood Count 5.7 K/mm3 (4.4-11.0)
[2019-07-24 14:18] LABS: ALB/GLOB Ratio 0.8 RATIO (0.9-2.4); AST(SGOT) 17 U/L (15-37); Alanine Aminotransfer ALT/SGPT 13 U/L (16-61); Alkaline Phosphatase 102 U/L (45-117); Anion Gap 4 (5-15); BUN 21 mg/dL (7-18); BUN/Creat Ratio 23.6 RATIO (10-20); Calcium,Total 8.8 mg/dL (8.5-10.1); Chloride 109 mmol/L (98-107); Creatinine, Serum 0.89 mg/dL (0.70-1.30); EST Glomerular Filtration Rate 90 mL/min (>60); Est Glom Filt Rate - Afr Amer 109 mL/min (>60); Glucose 96 mg/dL (74-106); Lipase 72 U/L (73-393); Potassium 4.1 mmol/L (3.5-5.1); Sodium Level 144 mmol/L (136-145)
[2019-07-24] MEDS: 0.9% Normal Saline 1,000 ML 1000 ML IV (14:26)
[2019-07-24 14:50] LABS: Bacteria 0 SEEN /hpf (None Seen); Mucous, Urine 0 SEEN /hpf (<or=2+); Red Blood Cells-Urine 0 SEEN /hpf (0-5); Squamous Epithelial Cells - UA 0 SEEN /hpf (0-5); White Blood Cells 0 SEEN /hpf (0-5)
[2019-07-24 14:51] LABS: Lactic Acid 1.3 mmol/L (0.4-1.9)
[2019-07-24 15:04] LABS: Color, Urine Yellow (Yellow); Glucose, Dipstick Normal (Normal); Ketone-Dipstick 50 mg/dl (Negative); Leukocyte Esterase-Dipstick 25 /ul (Negative); Nitrite-Dipstick Negative (Negative); Occult Blood-Urine 10 /ul (Negative); Protein-Dipstick 15 mg/dl (Negative); Urine Clarity Clear (Clear); Urine Urobilinogen 8 mg/dl (Normal)
[2019-07-24 15:05] LABS: Urine Bilirubin Dipstick 1 mg/dL (Negative)
--- NOTE | 2019-07-24 16:17 | ED.DCSUM_ITS ---
- ER Visit Summary Date of Service: 07/24/19 Chief Complaint: Altered mental status History of Present Illness: The patient is a 68 M who presents with altered mental status that became worse today. Caregiver at the workshop stated that the patient's mental status suddenly became worse today. Caregiver is concerned that the patient may have fallen and hit his head or possibly has a urinary tract infection. Caregiver stated the patient recently had some dark urine. Family states that the patient mental status became worse today. Family is concerned that maybe the patient aspirated while he was eating his lunch today. Physical Examination: Vital signs are stable. Patient is afebrile. Patient is in no acute distress. Oral mucosa is pink and dry. Neck is supple. Trachea is midline. There is no JVD. Heart was regular rate and rhythm. Lungs are clear and equal bilaterally. There is adequate respiratory effort. Abdomen is soft. Bowel sounds are normal. There is no tenderness. Cranial nerves II through XII are grossly intact. However, patient does not follow commands. Strength testing was not able to be performed. Sensation was not able to be performed. Test Results: The scan of the brain was obtained. There is no acute intracrani al abnormality. EKG showed normal sinus rhythm with a rate of 69. There are no acute ST or T wave changes. This was unchanged compared to previous EKG dated 04/04/2016. CBC and comprehensive metabolic profile were essentially within normal limits. Lipase was normal. Lactate was normal at 1.3. Troponin was normal. Urinalysis does not show any evidence of urinary tract infection. Emergency Department Course and Treatment: Patient was given IV fluids. Patient had no improvement in his mental status. Case was discussed with the neurologist covering for Dr. Ratliff. He states the patient also recently had a Depakote level which was normal and an ammonia level which was normal. Case was discussed with the hospitalist. Patient will be admitted for observation. Family understands and is agreeable with the plan. All questions were answered. Disposition: Admit for observation Impression: Altered mental status This note was generated with [employer] dictation software. It may contain incorrect words, spelling, and punctuation that were not noted in review of the chart prior to signing ED Disposition - Plan for ED Patient: Disposition: Acute Care Hospital [facility] Diagnosis: Altered mental status Referrals: Goran Rosario Chi, MD [Primary Care Provider] -
--- NOTE | 2019-07-24 16:44 | HP.PCM_ITS ---
Problem List (1) Altered mental status Status: Acute Qualifiers: Altered mental status type: stupor Qualified Code(s): R40.1 - Stupor (2) Infected sebaceous cyst of skin Status: Resolved (3) Parkinson disease Status: Chronic (4) Angio-edema Status: Chronic (5) Bipolar disorder Status: Chronic (6) HLD (hyperlipidemia) Status: Chronic (7) History of hypothyroidism Status: Chronic (8) Mental retardation Status: Chronic (9) Violent behavior Status: Chronic Comment: in the past History of Present Illness Date of Admission: 07/24/19 Chief Complaint: decreased level of consciousness The patient is a 68 year old M with a past medical history of MRDD since , Parkinson's disease, bipolar disorder, recurrent episodes of aspiration, hyperlipidemia, hypothyroidism, probable obstructive sleep apnea untreated due to inability to cooperate with leaving a mask on, chronic a aphasia and history of violent behavior in the past who was sent to the emergency department at [facility] from the [place] [facility] that he lives in because he has been lethargic today. He has a bruise on the bridge of his nose and may have fallen recently. Apparently he also coughed up a portion of a hotdog and may have aspirated. History is obtained from the family. Vital signs at presentation to the emergency department were temperature 97.1, pulse rate 72, blood pressure 107/72, respiratory rate 16 and he was 98% saturated on room air. CBC revealed a normal white blood cell count at 5.7 with an unremarkable differential. Hemoglobin is stable at 13.4 and the platelets were within normal limits. The CMP was significant for an elevated BUN at 21 with a creatinine of 0.89. LFTs are unremarkable. Troponin is less than 0.015. Lipase was 72. UA had 0 WBCs per high-power field. Tox screen is positive for barbiturates. V alproic acid level is 62 and the ammonia is normal at 23. Chest x-ray showed no infiltrates, pleural effusions or pulmonary vascular congestion. A noncontrasted CT brain was normal. He is being admitted to the hospital for altered mental status/LOC. Past Medical History Past Medical History (Chronic Problems): Chronic Problems Angio-edema (Chronic) Bipolar disorder (Chronic) History of hypothyroidism (Chronic) HLD (hyperlipidemia) (Chronic) Mental retardation (Chronic) Violent behavior (Chronic) in the past Parkinson disease (Chronic) Allergies benztropine mesylate [From Cogentin] Allergy (Verified 10/19/16 10:36) Unknown divalproex sodium [From Depakote] Allergy (Verified 07/24/19 13:33) Unknown paroxetine HCl [From Paxil] Allergy (Verified 10/19/16 10:36) Unknown risperidone [From Risperdal] Allergy (Verified 10/19/16 10:36) Unknown venlafaxine HCl [From Effexor] Allergy (Verified 10/19/16 10:36) Unknown Home Medications: Ambulatory Orders Medication Instructions Recorded Aspirin [Aspirin, Baby] 81 mg PO DAILY@0800 04/04/16 Divalproex Sprinkles [Depakote 125 mg PO TID 04/04/16 Sprinkles] Polyethylene Glycol 3350 [Miralax] 17 gm PO DAILY 04/04/16 Primidone [Mysoline] 50 mg PO QHS 04/04/16 Simvastatin [Zocor] 40 mg PO QHS 04/04/16 Quetiapine Fumarate [Seroquel XR] 50 mg PO DAILY@0800 10/04/16 Lubiprostone [Amitiza] 24 mcg PO BID 10/19/16 Bimatoprost 0.01% [Lumigan 0.01%] 1 drp EACH EYE DAILY@1600 07/24/19 Brimonidine Tartrate/Timolol 1 drp EACH EYE BID 07/24/19 [Combigan 0.2%-0.5% Eye Drops] Clonazepam 1 mg PO QHS 07/24/19 Ergocalciferol (Vitamin D2) 50,000 unit PO QMONTH 07/24/19 [Vitamin D2] Famotidine 40 mg PO DAILY 07/24/19 Levothyroxine [Synthroid] 25 mcg PO DAILY 07/24/19 Melatonin 4.5 mg PO DAILY@1700 07/24/19 Potassium Chloride [Klor-Con M10] 10 meq PO DAILY 07/24/19 Quetiapine Fumarate [Quetiapine 100 mg PO DAILY@199907/24/19 Fumarate ER] Tamsulosin HCl 0.4 mg PO QHS 07/24/19 Surgical History: no surgical history Psychiatric History: Bipolar - With history of violent behavior Lives: - - Lives in a [place] Smoking Status: Never smoker Tobacco Use: Non-smoker Alcohol: None Drugs: None - *Family History Maternal History Items: Unknown Paternal History Items: Unknown Review of Systems Respiratory: Denies: Cough Gastrointestinal: Denies: Diarrhea, Vomiting Skin: Denies: Wounds Unable to obtain accurate/complete ROS d/t: Cannot obtain-patient is a phasic and unresponsive VTE Information - Inpt Only VTE Present on Admission: No VTE Mechan Device Prophylaxis: None VTE Pharm Prophylaxis ordered?: No Reason prophylaxis not ordered:: Treatment Not Indicated - He is at low risk for DVT Patient Problems: Active and Suspected Problems Altered mental status (Acute) - Physical Exam Vitals/I&O's: Vital Signs Temp Pulse Resp BP Pulse Ox 97.1 F L 62 10 L 93/60 98 07/24/19 13:26 07/24/19 16:11 07/24/19 16:11 07/24/19 16:11 07/24/19 16:11 Oxygen Delivery Method Room Air Weight: 145 lb 4.554 oz Body Mass Index (BMI) 24.1 Finger Stick Blood Glucose 118 General: - - unresponsive, snoring HEENT: Normocephalic, - - He has a bruise on the brdige of the nose. The pupils are 1-2 MM and equal and responsive to light Oral: No Gingival or Mucosal Lesions/ Ulcerations, Dry Mucosa Neck: Supple, No JVD, Negative Carotid Bruits, No Nodes, Trachea Midline Lungs: Clear to auscultation, Diminished - in the bases and he is snoring, he is having some apneic episodes Cardiovascular: Regular rate, Regular Rhythm, Normal S1, Normal S2, No murmurs, No Ectopic Activity Abdomen: Bowel Sounds Present, Soft, Non Tender, Non-Distended, - Extremities: No cyanosis - No guarding with palpation, No edema, Clubbing, Dim inished Peripheral Pulses Skin: No rashes, No breakdown Neurological: - - He is not responsive. Can not follow commands. He is aphasic since . There are no focal neurologic deficits. Laboratory Results 07/24/19 13:54: WBC 5.7, RBC 4.46 L, Hgb 13.4, Hct 41.5, MCV 93.0, MCH 30.0, MCHC 32.3, RDW Std Deviation 45.8 H, RDW Coeff of Chuy 13.4, Plt Count 152, MPV 10.9, Immature Gran % (Auto) 0.200, Neut % (Auto) 65.8, Lymph % (Auto) 23.2, [place] % (Auto) 10.3 H, Eos % (Auto) 0.2, Baso % (Auto) 0.3, Absolute Neuts (auto) 3.8, Absolute Lymphs (auto) 1.33, Nucleated RBC % 0 07/24/19 13:54: Sodium 144, Potassium 4.1, Chloride 109 H, Carbon Dioxide 31.0, Anion Gap 4 L, BUN 21 H, Creatinine 0.89, Estim Creat Clear Calc 69.10, Est GFR (MDRD) Af Amer 109, Est GFR (MDRD) Non-Af 90, BUN/Creatinine Ratio 23.6 H, Glucose 96, Calcium 8.8, Total Bilirubin 0.60, AST 17, ALT 13 L, Alkaline Phosphatase 102, Troponin I < 0.015, Total Protein 7.0, Albumin 3.0 L, Globulin 4.0, Albumin/Globulin Ratio 0.8 L, Lipase 72 L 07/24/19 14:20: Lactic Acid 1.3 07/24/19 14:45: Urine Color Yellow, Urine Clarity Clear, Urine pH 6.0, Ur Specific [place] 1.020, Urine Protein 15 H, Urine Glucose (UA) Normal, Urine Ketones 50 H, Urine Occult Blood 10 H, Urine Nitrite Negative, Urine Bilirubin 1 H, Urine Urobilinogen 8 H, Ur Leukocyte Esterase 25 H, Urine RBC 0 SEEN, Urine WBC 0 SEEN, Ur Squamous Epith Cells 0 SEEN, Urine Bacteria 0 SEEN, Urine Mucus 0 SEEN 07/24/19 16:00: Valproic Acid Pending 07/24/19 16:00: Ammonia Pending Assessment/Plan All Active Problems Altered mental status (Acute) Infected sebaceous cyst of skin (Resolved) Impressions 1. Acute decrease in level of consciousness no evidence of infection. Normal noncontrasted CT brain. Unremarkable labs other than increased BUN/creatinine ratio. Therapeutic Depakote level with a normal ammonia. Etiology of change in LOC uncertain at this time. Will make NPO. Haldol PRN IM for agitation. Hold all the oral medications until the pt is awake and then get a ST eval for swallowing prior to starting a diet. Neuro checks every 4 hours x24 hours. 2. Dehydration with increased BUN/creatinine ratio-IV fluids ordered. Recheck lab in the a.m. 3. MRDD/hypothyroidism/hyperlipidemia/Parkinson's disease/bipolar disorder with violent behavior/chronic aspiration/probable ALYSHA-unable to treat secondary to patient's inability to cooperate with the test and with CPAP. Not on any oxygen at night and he has clubbing of both the nails and toenails. Will order an overnight trending pulse ox. Code Visit OBSV E&M: [id number] Initial observation care L3
[2019-07-24 17:07] LABS: Valproic Acid (Depakene) Level 62 ug/mL (50-100)
--- NOTE | 2019-07-24 17:32 | RAD_ITS ---
STUDY: X-RAY CHEST REASON FOR EXAM: Male, 68 years old. Suspected aspiration. TECHNIQUE: Single AP portable view of the chest. COMPARISON: Prior study of 04/04/2016 FINDINGS: The lungs are clear and expanded. There is no demonstrated pleural abnormality. Normal size heart. Normal mediastinum and valery. Normal visualized pulmonary arteries. Normal visualized aortic arch and descending thoracic aorta. Normal visualized thoracic spine. Normal visualized ribs, clavicles, and shoulders. There is no demonstrated abnormality of the visualized soft tissue structures of the upper abdomen. RAD/Chest 1 View (Portable) IMPRESSION: Normal x-ray examination of the chest. Electronically Signed: Neeraj Norris MD at 18:10 EST , Service support ,
[2019-07-24] MEDS: Lactated Ringers 1,000 ML 100 ML IV (18:24)
[2019-07-24 19:11] LABS: Amphetamine Urine VISTA NEGATIVE (<1000 ng/mL); Barbiturate Urine VISTA POSITIVE (< 200 ng/mL); Benzodiazepine Urine VISTA NEGATIVE (< 200 ng/mL); Cocaine Urine VISTA NEGATIVE (< 300 ng/mL); Ecstacy Urine VISTA NEGATIVE (< 500 ng/mL); Methadone Urine VISTA NEGATIVE (< 300 ng/mL); PCP Urine VISTA NEGATIVE (< 25 ng/mL); THC Urine VISTA NEGATIVE (< 50 ng/mL); Vista UDS pH Range 6
--- NOTE | 2019-07-24 23:40 | CPS ---
TREND STUDY SETUP. RT ATTEMTPED SETUP AT 2200 BUT PATIENT AWAKE AND WOULD NOT ALLOW RT TO PLACE LEADS. DURATION SET FOR 8 HRS., PAST RECORDINGS CLEARED AND RT CONFIRMED TODAYS DATE ON MACHINE.
[2019-07-25] VITALS (11 sets, daily range): BP systolic 103–114; BP diastolic 57–71; PULSE 53–73; RESP 18–20; TEMP 36.5–37.1; O2SAT 94–99
[2019-07-25] MEDS: BRIMONIDINE 0.2% 5ML BOTTLE 1 DRP EACH EYE ×3 (00:43→23:08)
[2019-07-25] MEDS: Timolol 0.5% 5ML OPTH.BTL 1 DRP EACH EYE ×3 (00:45→23:08)
[2019-07-25] MEDS: Lactated Ringers 1,000 ML 100 ML IV ×2 (03:31→15:11)
[2019-07-25 07:26] LABS: Absolute Lymphocyte Count 1.71 X10^3/uL (0.83-4.51); Basophil# 0.02 X10^3/uL; Basophil% 0.5 % (0-1); Eosinophil# 0.04 X10^3/uL; Eosinophils% 0.9 % (0-5); Hematocrit 35.7 % (40-54); Hemoglobin 11.4 g/dL (13.0-16.5); Lymphocyte # 1.71 X10^3/ul (4.0); Lymphocyte % 40.1 % (19-41); Mean Corp Hgb Conc 31.9 g/dL (32-36); Mean Corpuscular Hgb 30.2 pg (27.0-32.0); Mean Corpuscular Volume 94.7 fL (80-94); Mean Platelet Vol. 11.1 fl (6.2-12.0); Monocyte# 0.46 X10^3/uL; Monocyte% 10.8 % (0-10); NRBC Flagged by Analyzer 0 % (0-5); Neutrophil # 2.03 X10^3/uL (2.7-7.7); Neutrophil % 47.7 % (47-70); Platelet Count 117 K/mm3 (150-450); RBC Distribution Width CV 13.4 % (11.6-14.6); Red Blood Count 3.77 M/mm3 (4.6-6.2); White Blood Count 4.3 K/mm3 (4.4-11.0)
--- NOTE | 2019-07-25 07:34 | CPS ---
Per RN, pt wore P-ox Trend until around 3am, became extremely agitated, pulled probe off and couldn't be talked into wearing it again. Study was done on Room air.
[2019-07-25 08:11] LABS: Anion Gap 8 (5-15); BUN 17 mg/dL (7-18); BUN/Creat Ratio 27.9 RATIO (10-20); Calcium,Total 8.2 mg/dL (8.5-10.1); Chloride 110 mmol/L (98-107); Creatinine, Serum 0.61 mg/dL (0.70-1.30); EST Glomerular Filtration Rate 139 mL/min (>60); Est Glom Filt Rate - Afr Amer 169 mL/min (>60); Glucose 63 mg/dL (74-106); Potassium 3.8 mmol/L (3.5-5.1); Sodium Level 145 mmol/L (136-145)
[2019-07-25] MEDS: Divalproex Sodium 125 MG SPRINKLE PO ×2 (12:43→23:07)
[2019-07-25] MEDS: QUEtiapine 25 MG Tablet 50 MG PO (13:03)
[2019-07-25] MEDS: Polyethylene Glycol 3350 17 GM PACKET PO (13:04)
--- NOTE | 2019-07-25 13:38 | PCM.PN.HOSP ---
Patient Problems: Active and Suspected Problems Altered mental status (Acute) Reason for Visit: Lethargy, altered mental status and decreased responsiveness Objective: Patient has history of MRDD and history of agitation, restlessness when medications are changed. Was admitted with decreased responsiveness and lethargy. I talked to the patient's sister, Ms. Vivian Cisneros near the bedside. His medications are being managed by Dr. Ratliff whom I talked to. He is on Seroquel XR 50 mg twice daily, Depakote 125 mg 3 times daily, primidone 50 mg nightly, clonazepam 1 mg nightly. The medication regimen was confirmed by Dr. Ratliff and he has not recently adjusted his medications. He also had CT spine and CT lumbar spine about 5 to 6 weeks ago on June 19 and were normal. I also talked to the neurologist police surgeon in [facility]. Vitals/I&O's: Vital Signs Temp Pulse Resp BP Pulse Ox 98.3 F 73 20 H 103/57 L 95 07/25/19 13:34 07/25/19 13:34 07/25/19 13:34 07/25/19 13:34 07/25/19 13:34 Oxygen Delivery Method Room Air Weight: 145 lb 4.554 oz Body Mass Index (BMI) 24.1 Finger Stick Blood Glucose 118 Intake and Output for Last 24 Hours 07/23/19 07/24/19 07/25/19 23:59 23:59 23:59 Intake Total 1000 / 1000 961.67 / 961.67 Output Total 0 / 0 Balance 1000 / 1000 961.67 / 961.67 General: - - Patient was lethargic in the morning and then woke up around noon time. Getting restless. Not able to tolerate facemask and monitor leads. HEENT: Atraumatic, PERRLA, EOMI, Normocephalic Neck: Supple, No JVD, Negative Carotid Bruits Lungs: No rhonchi, No wheeze, No rales, Diminished Cardiovascular: Regular rate, Regular Rhythm, Normal S1, Normal S2, No murmurs Abdomen: Bowel Sounds Present, Soft, Non Tender, Non-Distended Extremities: No clubbing, No cyanosis, No edema Skin: No rashes, No breakdown Musculoskeletal: Arthritic Changes, Muscle Wasting - Mild to moderate muscle wasting of upper and lower extremity proximal muscle Lymphatic: No Cervical, Supraclavicular, or Inguinal Adenopathy Neurological: Cranial nerves II-XII grossly intact, Deep Tendon Reflexes 2+/4 and Symmetrical, - - Patient has developmental disorder and does not follow command. skilled nursing. Did not notice any obvious seizure-like movement. Laboratory Results 07/24/19 13:54: WBC 5.7, RBC 4.46 L, Hgb 13.4, Hct 41.5, MCV 93.0, MCH 30.0, MCHC 32.3, RDW Std Deviation 45.8 H, RDW Coeff of Chuy 13.4, Plt Count 152, MPV 10.9, Immature Gran % (Auto) 0.200, Neut % (Auto) 65.8, Lymph % (Auto) 23.2, Petroleum % (Auto) 10.3 H, Eos % (Auto) 0.2, Baso % (Auto) 0.3, Absolute Neuts (auto) 3.8, Absolute Lymphs (auto) 1.33, Nucleated RBC % 0 07/24/19 13:54: Sodium 144, Potassium 4.1, Chloride 109 H, Carbon Dioxide 31.0, Anion Gap 4 L, BUN 21 H, Creatinine 0.89, Estim Creat Clear Calc 69.10, Est GFR (MDRD) Af Amer 109, Est GFR (MDRD) Non-Af 90, BUN/Creatinine Ratio 23.6 H, Glucose 96, Calcium 8.8, Total Bilirubin 0.60, AST 17, ALT 13 L, Alkaline Phosphatase 102, Troponin I < 0.015, Total Protein 7.0, Albumin 3.0 L, Globulin 4.0, Albumin/Globulin Ratio 0.8 L, Lipase 72 L 07/24/19 14:20: Lactic Acid 1.3 07/24/19 14:45: Urine Color Yellow, Urine Clarity Clear, Urine pH 6.0, Ur Specific Mar[place]hal 1.020, Urine Protein 15 H, Urine Glucose (UA) Normal, Urine Ketones 50 H, Urine Occult Blood 10 H, Urine Nitrite Negative, Urine Bilirubin 1 H, Urine Urobilinogen 8 H, Ur Leukocyte Esterase 25 H, Urine RBC 0 SEEN, Urine WBC 0 SEEN, Ur Squamous Epith Cells 0 SEEN, Urine Bacteria 0 SEEN, Urine Mucus 0 SEEN 07/24/19 14:45: Urine Opiates Screen NEGATIVE, Urine Methadone Screen NEGATIVE, Ur Barbiturates Screen POSITIVE H, Ur Phencyclidine Scrn NEGATIVE, Ur Amphetamines Screen NEGATIVE, U Methamphetamin-MDMA NEGATIVE, U Benzodiazepines Scrn NEGATIVE, Urine Cocaine Screen NEGATIVE, U Cannabinoids Screen NEGATIVE, Ur Drug Screen Comment 07/24/19 16:00: Valproic Acid 62 07/24/19 16:00: Ammonia 23.0 07/25/19 06:58: WBC 4.3 L, RBC 3.77 L, Hgb 11.4 L, Hct 35.7 L, MCV 94.7 H, MCH 30.2, MCHC 31.9 L, RDW Std Deviation 46.0 H, RDW Coeff of Chuy 13.4, Plt Count 117 L, MPV 11.1, Immature Gran % (Auto) 0.000, Neut % (Auto) 47.7, Lymph % (Auto) 40.1, Petroleum % (Auto) 10.8 H, Eos % (Auto) 0.9, Baso % (Auto) 0.5, Absolute Neuts (auto) 2.0, Absolute Lymphs (auto) 1.71, Nucleated RBC % 0 07/25/19 06:58: Sodium 145, Potassium 3.8, Chloride 110 H, Carbon Dioxide 27.0, Anion Gap 8, BUN 17, Creatinine 0.61 L, Estim Creat Clear Calc 61.50, Est GFR (MDRD) Af Amer 169, Est GFR (MDRD) Non-Af 139, BUN/Creatinine Ratio 27.9 H, Glucose 63 L, Calcium 8.2 L Current Medications Aspirin (Aspirin, Baby) 81 mg PO DAILY@0800 [facility] Atorvastatin Calcium (Lipitor) 20 mg PO QHS [facility] Brimonidine Tartrate (Brimonidine 0.2% 5ml Bottle) 1 drop EACH EYE BID [facility] Last Admin: 07/25/19 13:09 Dose: 1 drop Documented by: Clonazepam (Klonopin) 1 mg PO QHS [facility] Divalproex Sodium (Depakote Sprinkles) 125 mg PO TID [facility] Last Admin: 07/25/19 12:43 Dose: 125 mg Documented by: Famotidine (Pepcid) 40 mg PO DAILY [facility] Haloperidol Lactate (Haldol) 4 mg IM Q6H PRN PRN PRN Reason: AGITATION Lactated Ringer's () 1,000 mls @ 100 mls/hr IV .Q10H [facility] Last Admin: 07/25/19 03:31 Dose: 100 mls/hr Documented by: Latanoprost (Xalatan Opthalmic) 1 drop EACH EYE DAILY@1600 [facility] Levothyroxine Sodium (Synthroid) 25 mcg PO DAILY@0600 [facility] Lubiprostone (Amitiza) 24 mcg PO BID [facility] Non-Formulary Medication (Melatonin) 4.5 mg PO DAILY@1700 [facility] Ondansetron HCl (Zofran) 4 mg IV Q8H PRN PRN PRN Reason: NAUSEA/VOMITING Polyethylene Glycol (Miralax) 17 gm PO DAILY [facility] Last Admin: 07/25/19 13:04 Dose: 17 gm Documented by: Potassium Chloride (K-Dur) 10 meq PO DAILY [facility] Last Admin: 07/25/19 12:56 Dose: Not Given Documented by: Primidone (Mysoline) 50 mg PO QHS [facility] Quetiapine Fumarate (Seroquel) 50 mg PO BID [facility] Last Admin: 07/25/19 13:03 Dose: 50 mg Documented by: Sodium Chloride () 10 - 40 ml IV UD PRN PRN Reason: SALINE FLUSH Tamsulosin HCl (Flomax) 0.4 mg PO QHS [facility] Timolol Maleate (Timoptic) 1 drop EACH EYE BID [facility] Last Admin: 07/25/19 13:12 Dose: 1 drop Documented by: STROKE Vital Signs/Narrative: Vital Signs Temp Pulse Resp BP Pulse Ox 07/25/19 13:34 98.3 F 73 20 H 103/57 L 95 07/25/19 11:32 67 Medical Necessity - Tobacco Use Smoking Status: Never smoker Tobacco Use: Non-smoker Assessment/Plan All Active Problems Altered mental status (Acute) Infected sebaceous cyst of skin (Resolved) This is a 68-year-old gentleman with history of MRDD since , Parkinson's disease, bipolar disorder, recurrent episodes of aspiration, dyslipidemia, hypothyroidism and probable obstructive sleep apnea not able to tolerate facemask was admitted from [facility] through ER for altered mental status. Patient was found to have decreased responsiveness, lethargy. As per the sister, Ms. Park near the bedside, she was eating and had cough and choking during Day celebration in al[facility]. After that he was found decreased responsive and drowsy and drooling. He had seen Dr. Ratliff recently in June 2019. 1. Altered mental status/decreased responsiveness probably secondary to polypharmacy/antipsychotic medication: Chest x-ray independently reviewed and does not show evidence of infection/pneumonia, UA is negative. CT brain noncontrast reported normal. No leukocytosis, fever or chills. Patient is on multiple antipsychotic medications. I discussed with Dr. Ratliff and neurologist police surgeon in [facility], Dr Turcios. In the past he was not able to tolerate MRI and EEG. There is a concern of seizure but there was no obvious seizure-like movement. There is possibility of subclinical seizure patient of MRDD. I gave the option to the sister either transfer to [facility] for 24-hour video EEG monitoring as suggested by Dr. Ratliff but she does not want to get transferred. He suggested free and total primidone and free Depakote level and not ordered. Total Depakote and ammonia level are normal. Patient is put back on Seroquel 50 mg in a.m. and evening, Depakote 125 mg 3 times daily, Klonopin 1 mg nightly, primidone 50 mg nightly as per home medication schedule. Discussed with the pharmacist. MRI is ordered when patient is more stable. Patient could not tolerate EEG. I also gave the option for [facility] neurology consult but she wanted to discuss with Dr. Ratliff which I did. 2. Mild dehydration with prerenal azotemia: Admitting BUN/creatinine was 21/0.89. With IV fluids corrected to 17/0.61. 3. MRDD with behavioral disorder, developmental disorder: Patient has history of agitation, violent behavior. Patient put back on the medications as mentioned above. 4. Parkinson's disease, bipolar disorder: As mentioned above 5. Chronic aspiration: Chest x-ray is clear. Speech therapy evaluation. Feeding under supervision 6. Probable obstructive sleep apnea: Patient does not tolerate mask and continuous pulse oximetry improved. Pulse ox 95% on room air DVT prophylaxis: Lovenox 40 mg subcu daily Total time of the visit including total time spent in counseling or coordination of care, (more than 50% of the total time, spent in obtaining medical information from nurses and other ancillary care providers), discussion with patient's sister, Dr. Ratliff and neurologist police surgeon in [facility], review of labs and imaging is 45 minutes Clinical Impression(s) from Imaging Studies Brain CT 07/24/19 13:52 IMPRESSION: Normal unenhanced CT scan of the brain. Chest X-Ray 07/24/19 17:32 IMPRESSION: Normal x-ray examination of the chest. Code Visit Inpatient E&M: 01553 Subs Hosp L3
[2019-07-25] MEDS: Enoxaparin 40 MG/0.4 ML Syringe SC (15:03)
[2019-07-25] MEDS: Latanoprost 0.005% 1 Bottle 1 DRP EACH EYE (15:08)
--- NOTE | 2019-07-25 15:14 | CM.UR ---
Was asked by nurse to alert residential that Speech evaluated patient and they are recommendin) pureed foods. 2) thin liquids 3) supervised while eating. Called Isabela, tool programmer (first phone number under demos) at [facility]. Left vm with the information as documented above. Librado Schwartz RN, CCM.
[2019-07-25 15:40] LABS: Magnesium 1.9 mg/dL (1.6-2.6)
--- NOTE | 2019-07-25 17:54 | PN_ITS ---
Progress Note Hospitalist covering for Dr. Xavier. I received a call from Dr. Xavier requesting I decrease the doses of the Depakote and the Seroquel because the pt is now lethargic again after restarting his meds. He is MRDD and [facility] a [facility]. I admitted him to the hospital last night for lethargy. He is on many sedating drugs to control his violent behavior. Infection has been ruled out. He is aphasic and he is unable to follow commands. He can not have an MRI because he is unable to cooperate. He has apneic episodes which I have witnessed but can not cooperate to have a sleep study or wear a CPAP mask if he does have ALYSHA. I ordered an overnight trending pulse ox and he would not leave the oxygen sensor on. He was restarted on some of his medications today after the ST evaluated his swallowing. Dr. Xavier spent a long time with the family today and talking with Dr. Ratliff and the neurologist semiconductor packages tester at [facility]. The family was offered the option of transferring to [facility] where he could see a neurologist and a psychiatrist for adjustments to his medication regimen. He could also have a video assisted 24 hr EEG to r/o seizures as a cause of altered LOC. They declined. I spoke with his sister on the phone and recommended that she discuss transfer to [facility] with Dr. Xavier tomorrow so that he can have the support he needs to figure this out. It is beyond the scope of this hospital. I also told her that since he is getting older the kidney and liver function are changing and he may not be metabolizing the many sedating meds the same way he used to. He is better served going to a facility where they have subspecialists to manage the drugs. Seroquel was decreased to 25 mg p.o. twice daily and the depakote to 125 mg BID....both are ordered to be held if the pt is lethargic. STROKE Vital Signs/Narrative: Vital Signs Pulse 07/25/19 17:20 57 L
[2019-07-25] MEDS: Lubiprostone 24 MCG Capsule PO (22:58)
[2019-07-25] MEDS: QUEtiapine 25 MG Tablet PO (23:04)
[2019-07-25] MEDS: clonazePAM 1 MG Tablet PO (23:05)
[2019-07-25] MEDS: Tamsulosin HCl 0.4 MG Capsule PO (23:07)
[2019-07-25] MEDS: Atorvastatin Calcium 20 MG Tablet PO (23:08)
[2019-07-26 02:31] VITALS: PULSE 60
[2019-07-26 04:00] VITALS: BP 115/68; PULSE 64; RESP 16; TEMP 36.8; O2SAT 96
[2019-07-26] MEDS: Lactated Ringers 1,000 ML 100 ML IV (05:24)
[2019-07-26] MEDS: Levothyroxine 25 MCG TABLET PO (05:26)
[2019-07-26 06:20] VITALS: O2SAT 96
[2019-07-26 07:30] VITALS: PULSE 73
--- NOTE | 2019-07-26 09:35 | DS.PCM_ITS ---
Discharge Date and Diagnosis - Problem List Patient Problems: Active and Suspected Problems Altered mental status (Acute) Date of Admission: 07/24/19 Date of Discharge: 07/26/19 - Primary Discharge Diagnosis Active and Suspected Problems Altered mental status (Acute) - Secondary Discharge Diagnosis Chronic Problems Angio-edema (Chronic) Bipolar disorder (Chronic) History of hypothyroidism (Chronic) HLD (hyperlipidemia) (Chronic) Mental retardation (Chronic) Violent behavior (Chronic) in the past Parkinson disease (Chronic) Hospital Course and Treatment Operations: None Summary of Care Provided: This is a 68-year-old gentleman with history of MRDD since , Parkinson's disease, bipolar disorder, recurrent episodes of aspiration, dyslipidemia, hypothyroidism and probable obstructive sleep apnea not able to tolerate facemask was admitted from [facility] through ER for altered mental status. Patient was found to have decreased responsiveness, lethargy. As per the sister, Ms. Park near the bedside, she was eating and had cough and choking during 's celebration in [facility]. After that he was found decreased responsive and drowsy and drooling. He had seen Dr. Ratliff recently in June 2019. 1. Altered mental status/decreased responsiveness probably secondary to polypharmacy/antipsychotic medication: Chest x-ray independently reviewed and does not show evidence of infection/pneumonia, UA is negative. CT brain noncontrast reported normal. No leukocytosis, fever or chills. Patient is on multiple antipsychotic medications. I discussed with Dr. Ratliff and neurologist professional athlete in [facility], Dr Turcios yesterday on 07/25/2019. In the past he was not able to tolerate MRI and EEG. There is a concern of seizure but there was no obvious seizure-like movement. There is possibility of subclinical seizure patient of MRDD, therefore 24-hour video monitoring is an option but it is challenging for the patient because of behavioral disorder. I talked to the daughter and I yesterday talked to both daughters Vivian and Ayah. Today, Vivian agreed for transfer to [facility] to be evaluated by neurologist and psychiatrist and needs further adjustment of medication. He decreased Seroquel 25 mg twice daily and Depakote 125 mg twice daily. He is on Klonopin 1 mg nightly, primidone 50 mg nightly as per home schedule with holding parameters for lethargy/sedation. Total Depakote and ammonia levels were normal. Free and total primidone and free Depakote levels are pending as they are send out labs. 2. Mild dehydration with prerenal azotemia: Admitting BUN/creatinine was 21/0.89. With IV fluids corrected to 17/0.61. Mild hypokalemia K3.3. Potassium replacement ordered. BUN/creatinine normal. 3. MRDD with behavioral disorder, developmental disorder: Patient has history of agitation, violent behavior. Patient put back on the medications as mentioned above. 4. Parkinson's disease, bipolar disorder: As mentioned above 5. Chronic aspiration: Chest x-ray is clear. Speech therapy evaluation. Feeding under supervision 6. Probable obstructive sleep apnea: Patient does not tolerate mask and continuous pulse oximetry improved. Pulse ox 95% on room air DVT prophylaxis: Lovenox 40 mg subcu daily Total time spent, exact 35 minutes on history, examination, coordination of care with nurses and ancillary staff, review of imaging and blood test and discussion with the POA, patient's Sister Vivian on medications and transferred to [facility]. Patient is clinically stable to be transferred to [facility] for further evaluation and management Patient Problems: Active and Suspected Problems Altered mental status (Acute) Subjective: Patient is MRDD. Noncommunicative. Smiles on eye contact. Looks more atte ntive as compared to yesterday. Objective: General: -More attentive. Does not follow command but he smiles and giggles. Feeding on supervision HEENT: Atraumatic, PERRLA, EOMI, Normocephalic Neck: Supple, No JVD, Negative Carotid Bruits Lungs: No rhonchi, No wheeze, No rales, air entry bilateral equal but mildly diminished in bilateral lung bases. Cardiovascular: Regular rate, Regular Rhythm, Normal S1, Normal S2, No murmurs Abdomen: Bowel Sounds Present, Soft, Non Tender, Non-Distended. Dysphagia with risk of aspiration. Patient in one-to-one supervised feed. Pur?ed diet. Extremities: No clubbing, No cyanosis, No edema Skin: No rashes, No breakdown Musculoskeletal: Arthritic Changes, Mild to moderate muscle wasting of upper and lower extremity proximal muscle Lymphatic: No Cervical, Supraclavicular, or Inguinal Adenopathy Neurological: Cranial nerves II-XII grossly intact, Deep Tendon Reflexes 2+/4 and Symmetrical, Patient has developmental disorder and does not follow command. Did not notice any obvious seizure-like movement. - Physical Exam Vitals/I&O's: Vital Signs Temp Pulse Resp BP Pulse Ox 98.2 F 64 16 115/68 96 07/26/19 04:00 07/26/19 04:00 07/26/19 04:00 07/26/19 04:00 07/26/19 06:20 Oxygen Delivery Method Room Air Weight: 145 lb 4.554 oz Body Mass Index (BMI) 24.1 Finger Stick Blood Glucose 118 Intake and Output for Last 24 Hours 07/24/19 07/25/19 07/26/19 23:59 23:59 23:59 Intake Total 1000 / 1000 2953.34 / 3073.34 313.33 / 313.33 Output Total 0 / 0 Balance 1000 / 1000 2953.34 / 3073.34 313.33 / 313.33 Laboratory Results 07/25/19 15:00: Primidone Pending, Phenobarbital Pending 07/25/19 15:00: Magnesium 1.9 07/25/19 15:00: Miscellaneous Test Pending Current Medications Aspirin (Aspirin, Baby) 81 mg PO DAILY@0800 [facility] Atorvastatin Calcium (Lipitor) 20 mg PO QHS [facility] Last Admin: 07/25/19 23:08 Dose: 20 mg Documented by: Brimonidine Tartrate (Brimonidine 0.2% 5ml Bottle) 1 drop EACH EYE BID [facility] Last Admin: 07/25/19 23:08 Dose: 1 drop Documented by: Clonazepam (Klonopin) 1 mg PO QHS [facility] Last Admin: 07/25/19 23:05 Dose: 1 mg Documented by: Divalproex Sodium (Depakote Sprinkles) 125 mg PO BID [facility] Last Admin: 07/25/19 23:07 Dose: 125 mg Documented by: Enoxaparin Sodium (Lovenox) 40 mg SC DAILY [facility] Last Admin: 07/25/19 15:03 Dose: 40 mg Documented by: Famotidine (Pepcid) 40 mg PO DAILY [facility] Haloperidol Lactate (Haldol) 4 mg IM Q6H PRN PRN PRN Reason: AGITATION Lactated Ringer's () 1,000 mls @ 100 mls/hr IV .Q10H [facility] Last Admin: 07/26/19 05:24 Dose: 100 mls/hr Documented by: Latanoprost (Xalatan Opthalmic) 1 drop EACH EYE DAILY@1600 [facility] Last Admin: 07/25/19 15:08 Dose: 1 drop Documented by: Levothyroxine Sodium (Synthroid) 25 mcg PO DAILY@0600 [facility] Last Admin: 07/26/19 05:26 Dose: 25 mcg Documented by: Lubiprostone (Amitiza) 24 mcg PO BID [facility] Last Admin: 07/25/19 22:58 Dose: 24 mcg Documented by: Melatonin (Melatonin) 4.5 mg PO DAILY@1700 [facility] Last Admin: 07/25/19 17:06 Dose: Not Given Documented by: Ondansetron HCl (Zofran) 4 mg IV Q8H PRN PRN PRN Reason: NAUSEA/VOMITING Polyethylene Glycol (Miralax) 17 gm PO DAILY [facility] Last Admin: 07/25/19 13:04 Dose: 17 gm Documented by: Potassium Chloride (K-Dur) 10 meq PO DAILY [facility] Last Admin: 07/25/19 12:56 Dose: Not Given Documented by: Primidone (Mysoline) 50 mg PO DAILY@1999 [facility] Last Admin: 07/25/19 20:52 Dose: Not Given Documented by: Quetiapine Fumarate (Seroquel) 25 mg PO BID [facility] Last Admin: 07/25/19 23:04 Dose: 25 mg Documented by: Sodium Chloride () 10 - 40 ml IV UD PRN PRN Reason: SALINE FLUSH Tamsulosin HCl (Flomax) 0.4 mg PO QHS [facility] Last Admin: 07/25/19 23:07 Dose: 0.4 mg Documented by: Timolol Maleate (Timoptic) 1 drop EACH EYE BID [facility] Last Admin: 07/25/19 23:08 Dose: 1 drop Documented by: Home Medications: Medications to take at Discharge Aspirin [Aspirin, Baby] 81 mg PO DAILY@0800 04/04/16 Divalproex Sprinkles [Depakote Sprinkles] 125 mg PO TID 04/04/16 Polyethylene Glycol 3350 [Miralax] 17 gm PO DAILY 04/04/16 Primidone [Mysoline] 50 mg PO DAILY@199904/04/16 Simvastatin [Zocor] 40 mg PO QHS 04/04/16 Quetiapine Fumarate [Seroquel XR] 50 mg PO DAILY@0800 10/04/16 Lubiprostone [Amitiza] 24 mcg PO BID 10/19/16 Bimatoprost 0.01% [Lumigan 0.01%] 1 drp EACH EYE DAILY@1600 07/24/19 Brimonidine Tartrate/Timolol [Combigan 0.2%-0.5% Eye Drops] 1 drp EACH EYE BID 07/24/19 Clonazepam 1 mg PO DAILY@199907/24/19 Ergocalciferol (Vitamin D2) [Vitamin D2] 50,000 unit PO QMONTH 07/24/19 Famotidine 40 mg PO DAILY 07/24/19 Levothyroxine [Synthroid] 25 mcg PO DAILY 07/24/19 Melatonin 4.5 mg PO DAILY@17007/24/19 Potassium Chloride [Klor-Con M10] 10 meq PO DAILY 07/24/19 Quetiapine Fumarate [Quetiapine Fumarate ER] 100 mg PO DAILY@199907/24/19 Tamsulosin HCl 0.4 mg PO QHS 07/24/19 Primary Care Physician: Goran Rosario Chi, MD [Primary Care Provider] - Medical Necessity - Tobacco Use Smoking Status: Never smoker Tobacco Use: Non-smoker Meaningful Use Info Meaningful Use Diagnoses (Choose all that apply): None applicable Code Visit Inpatient E&M: 50885 Disch Hosp
[2019-07-26 09:51] LABS: Absolute Lymphocyte Count 1.95 X10^3/uL (0.83-4.51); Absolute Neutrophil Count 1.5 X10^3/uL (2.0-7.7); Basophil# 0.02 X10^3/uL; Basophil% 0.5 % (0-1); Eosinophil# 0.06 X10^3/uL; Eosinophils% 1.5 % (0-5); Hematocrit 34.8 % (40-54); Hemoglobin 11.5 g/dL (13.0-16.5); Lymphocyte # 1.95 X10^3/ul (4.0); Lymphocyte % 49.9 % (19-41); Mean Corpuscular Hgb 30.8 pg (27.0-32.0); Mean Corpuscular Volume 93.3 fL (80-94); Mean Platelet Vol. 10.7 fl (6.2-12.0); Monocyte# 0.35 X10^3/uL; NRBC Flagged by Analyzer 0 % (0-5); Neutrophil # 1.52 X10^3/uL (2.7-7.7); Neutrophil % 38.8 % (47-70); Platelet Count 126 K/mm3 (150-450); RBC Distribution Width CV 13.2 % (11.6-14.6); Red Blood Count 3.73 M/mm3 (4.6-6.2); White Blood Count 3.9 K/mm3 (4.4-11.0)
[2019-07-26] MEDS: Famotidine 20 MG Tablet 40 MG PO (10:07)
[2019-07-26] MEDS: Divalproex Sodium 125 MG SPRINKLE PO (10:07)
[2019-07-26] MEDS: Aspirin 81 MG TAB.CHEW PO (10:08)
[2019-07-26] MEDS: Enoxaparin 40 MG/0.4 ML Syringe SC (10:08)
[2019-07-26] MEDS: Polyethylene Glycol 3350 17 GM PACKET PO (10:08)
[2019-07-26] MEDS: QUEtiapine 25 MG Tablet PO (10:09)
[2019-07-26] MEDS: Timolol 0.5% 5ML OPTH.BTL 1 DRP EACH EYE (10:09)
[2019-07-26] MEDS: BRIMONIDINE 0.2% 5ML BOTTLE 1 DRP EACH EYE (10:09)
[2019-07-26] MEDS: Lubiprostone 24 MCG Capsule PO (10:10)
[2019-07-26 10:15] LABS: ALB/GLOB Ratio 0.7 RATIO (0.9-2.4); AST(SGOT) 20 U/L (15-37); Alanine Aminotransfer ALT/SGPT 12 U/L (16-61); Albumin, Serum 2.5 g/dL (3.2-5.0); Alkaline Phosphatase 81 U/L (45-117); Anion Gap 5 (5-15); BUN 13 mg/dL (7-18); BUN/Creat Ratio 18.5 RATIO (10-20); Calcium,Total 8.3 mg/dL (8.5-10.1); Chloride 108 mmol/L (98-107); EST Glomerular Filtration Rate 118 mL/min (>60); Est Glom Filt Rate - Afr Amer 143 mL/min (>60); Globulin 3.4 g/dL (2.2-4.2); Glucose 89 mg/dL (74-106); Potassium 3.3 mmol/L (3.5-5.1); Protein, Total 5.9 g/dL (6.4-8.2); Sodium Level 141 mmol/L (136-145)
[2019-07-26 10:27] VITALS: BP 130/88; PULSE 65; RESP 20; TEMP 36.3; O2SAT 99
--- NOTE | 2019-07-26 11:50 | NURSING ---
Dr. Xavier wanted this nurse to give 40 meq of POtassium to pt but when this nurse went to give, pt was sleeping and drowsy when stimulated so this nurse did not want to give the liquid potassium. Dr. Xavier made aware that when report called, This nurse will notify nurse getting report.
--- NOTE | 2019-07-26 12:06 | NURSING ---
Report given to Nurse at [facility]. Nurse is aware that 40meq po liquid not given for potassium of 3.3 due to drowsyness from Seroquel. Chang lorenzo also just given a report and are taking pt at this time to [facility].
[2019-07-29 14:24] LABS: Primidone, Serum 1.2 ug/mL (5.0-12.0)
== END 2019-07-26 12:13 | disposition short-term general hospital (02) | DRG 948 ==
LOC: ED 16:22 → MS3 16:55
PROVIDERS: Admitting Provider Internal Medicine; Emergency Provider Emergency Medicine; PCP Family Medicine Geriatric Medicine; Visit Provider Internal Medicine
DX: R41.82 Altered mental status, unspecified (principal); R47.01 Aphasia; T43.505A Adverse effect of unspecified antipsychotics and neuroleptics, initial encounter; T50.915A Adverse effect of multiple unspecified drugs, medicaments and biological substances, initial encounter; F79 Unspecified intellectual disabilities; E86.0 Dehydration; G20 Parkinson's disease; F31.9 Bipolar disorder, unspecified; E03.9 Hypothyroidism, unspecified; E78.5 Hyperlipidemia, unspecified; E87.6 Hypokalemia; G47.33 Obstructive sleep apnea (adult) (pediatric)
CPT/HCPCS: 70450; 71045; 80048; 80053; 80164; 80184; 80188; 80307; 81001; 82140; 83605; 83690; 83735; 84484; 85025; 92507; 92526; 92610; 93005; 94762; 99285; J7030; J7120; P9612; A4216

== ENCOUNTER → 2019-08-12 13:05 | Outpatient (CLI) | payer MEDICARE, MEDICAID, SELFPAY ==
[2019-07-24 13:26] VITALS: BMI 24.1
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
== END ==
PROVIDERS: PCP Family Medicine Geriatric Medicine; Referring Provider Family Medicine Geriatric Medicine; Visit Provider Family Medicine Geriatric Medicine
DX: R13.10 Dysphagia, unspecified (principal)
CPT/HCPCS: 76000; 92611

== ENCOUNTER → 2019-12-16 14:27 | Outpatient (CLI) | payer MEDICARE, MEDICAID, SELFPAY ==
[2019-07-24 13:26] VITALS: BMI 24.1
[2019-12-16 16:11] LABS: Absolute Neutrophil Count 3.8 X10^3/uL (2.0-7.7); Basophil# 0.02 X10^3/uL; Basophil% 0.3 % (0-1); Eosinophil# 0.06 X10^3/uL; Eosinophils% 0.9 % (0-5); Hematocrit 38.9 % (40-54); Hemoglobin 12.2 g/dL (13.0-16.5); Lymphocyte % 31.1 % (19-41); Mean Corp Hgb Conc 31.4 g/dL (32-36); Mean Corpuscular Volume 95.6 fL (80-94); Mean Platelet Vol. 10.5 fl (6.2-12.0); Monocyte% 9.3 % (0-10); NRBC Flagged by Analyzer 0 % (0-5); Neutrophil # 3.75 X10^3/uL (2.7-7.7); Neutrophil % 58.2 % (47-70); Platelet Count 282 K/mm3 (150-450); RBC Distribution Width CV 13.3 % (11.6-14.6); RBC Distribution Width SD 46.4 fl (35.1-43.9); Red Blood Count 4.07 M/mm3 (4.6-6.2); White Blood Count 6.4 K/mm3 (4.4-11.0)
[2019-12-16 16:30] LABS: Vitamin D,25 Hydroxy 50.5 ng/mL
[2019-12-16 17:05] LABS: ALB/GLOB Ratio 0.7 RATIO (0.9-2.4); AST(SGOT) 12 U/L (15-37); Alanine Aminotransfer ALT/SGPT 16 U/L (16-61); Alkaline Phosphatase 132 U/L (45-117); Anion Gap 6 (5-15); BUN 11 mg/dL (7-18); BUN/Creat Ratio 13.3 RATIO (10-20); Calcium,Total 8.4 mg/dL (8.5-10.1); Chloride 107 mmol/L (98-107); Creatinine, Serum 0.82 mg/dL (0.70-1.30); EST Glomerular Filtration Rate 98 mL/min (>60); Est Glom Filt Rate - Afr Amer 119 mL/min (>60); Globulin 4.2 g/dL (2.2-4.2); Glucose 82 mg/dL (74-106); Potassium 4.1 mmol/L (3.5-5.1); Protein, Total 7.2 g/dL (6.4-8.2); Sodium Level 142 mmol/L (136-145); Thyroid Stim Hormone (TSH) 1.57 uIU/mL (0.358-3.74)
== END ==
PROVIDERS: PCP Family Medicine Geriatric Medicine; Visit Provider Family Medicine Geriatric Medicine
DX: E55.9 Vitamin D deficiency, unspecified (principal); R53.83 Other fatigue
CPT/HCPCS: 36415; 80053; 82306; 84443; 85025

== ENCOUNTER → 2020-03-08 11:50 | Outpatient (CLI) | payer MEDICARE, MEDICAID, SELFPAY ==
[2019-07-24 13:26] VITALS: BMI 24.1
[2020-03-08 12:36] LABS: Absolute Lymphocyte Count 1.61 X10^3/uL (0.83-4.51); Absolute Neutrophil Count 3.4 X10^3/uL (2.0-7.7); Basophil# 0.03 X10^3/uL; Basophil% 0.5 % (0-1); Eosinophil# 0.06 X10^3/uL; Eosinophils% 1.1 % (0-5); Hematocrit 40.6 % (40-54); Hemoglobin 13.2 g/dL (13.0-16.5); Lymphocyte # 1.61 X10^3/ul (4.0); Lymphocyte % 28.5 % (19-41); Mean Corp Hgb Conc 32.5 g/dL (32-36); Mean Corpuscular Hgb 30.3 pg (27.0-32.0); Mean Corpuscular Volume 93.3 fL (80-94); Mean Platelet Vol. 10.6 fl (6.2-12.0); Monocyte# 0.59 X10^3/uL; Monocyte% 10.4 % (0-10); NRBC Flagged by Analyzer 0 % (0-5); Neutrophil # 3.35 X10^3/uL (2.7-7.7); Neutrophil % 59.3 % (47-70); Platelet Count 240 K/mm3 (150-450); RBC Distribution Width CV 13.6 % (11.6-14.6); RBC Distribution Width SD 46.5 fl (35.1-43.9); Red Blood Count 4.35 M/mm3 (4.6-6.2); White Blood Count 5.7 K/mm3 (4.4-11.0)
[2020-03-08 13:04] LABS: Vitamin D,25 Hydroxy 70.2 ng/mL
[2020-03-08 13:22] LABS: ALB/GLOB Ratio 0.8 RATIO (0.9-2.4); AST(SGOT) 15 U/L (15-37); Alanine Aminotransfer ALT/SGPT 15 U/L (16-61); Albumin, Serum 3.4 g/dL (3.2-5.0); Alkaline Phosphatase 119 U/L (45-117); Anion Gap 3 (5-15); BUN 13 mg/dL (7-18); BUN/Creat Ratio 16.6 RATIO (10-20); Chloride 108 mmol/L (98-107); Creatinine, Serum 0.78 mg/dL (0.70-1.30); EST Glomerular Filtration Rate 104 mL/min (>60); Est Glom Filt Rate - Afr Amer 126 mL/min (>60); Globulin 4.4 g/dL (2.2-4.2); Glucose 75 mg/dL (74-106); PSA,Total - Annual Screen 2.33 ng/mL (0.00-4.00); Potassium 3.9 mmol/L (3.5-5.1); Protein, Total 7.8 g/dL (6.4-8.2); Sodium Level 141 mmol/L (136-145); Thyroid Stim Hormone (TSH) 1.83 uIU/mL (0.358-3.74)
[2020-03-08 13:29] LABS: Valproic Acid (Depakene) Level 49 ug/mL (50-100)
== END ==
PROVIDERS: PCP Family Medicine Geriatric Medicine; Visit Provider Psychiatry & Neurology Psychiatry
DX: F19.10 Other psychoactive substance abuse, uncomplicated (principal); R53.83 Other fatigue; E55.9 Vitamin D deficiency, unspecified; Z79.899 Other long term (current) drug therapy; Z12.5 Encounter for screening for malignant neoplasm of prostate
CPT/HCPCS: 36415; 80053; 80164; 82140; 82306; 84153; 84443; 85025; G0103

== ENCOUNTER → 2020-08-10 13:06 | Outpatient (CLI) | payer MEDICARE, MEDICAID, SELFPAY ==
[2019-07-24 13:26] VITALS: BMI 24.1
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
== END ==
PROVIDERS: PCP Family Medicine Geriatric Medicine; Referring Provider Family Medicine Geriatric Medicine; Visit Provider Family Medicine Geriatric Medicine
DX: R13.10 Dysphagia, unspecified (principal)
CPT/HCPCS: 74230; 92611

== ENCOUNTER → 2020-09-06 11:26 | Outpatient (CLI) | payer MEDICARE, MEDICAID, SELFPAY ==
[2019-07-24 13:26] VITALS: BMI 24.1
[2020-09-06 12:18] LABS: Absolute Lymphocyte Count 1.96 X10^3/uL (0.83-4.51); Absolute Neutrophil Count 1.7 X10^3/uL (2.0-7.7); Basophil# 0.04 X10^3/uL; Basophil% 0.9 % (0-1); Eosinophil# 0.08 X10^3/uL; Eosinophils% 1.9 % (0-5); Hematocrit 42.6 % (40-54); Lymphocyte # 1.96 X10^3/ul (4.0); Lymphocyte % 45.9 % (19-41); Mean Corp Hgb Conc 32.9 g/dL (32-36); Mean Corpuscular Hgb 30.4 pg (27.0-32.0); Mean Corpuscular Volume 92.6 fL (80-94); Mean Platelet Vol. 10.8 fl (6.2-12.0); Monocyte# 0.48 X10^3/uL; Monocyte% 11.2 % (0-10); NRBC Flagged by Analyzer 0 % (0-5); Neutrophil # 1.67 X10^3/uL (2.7-7.7); Neutrophil % 39.2 % (47-70); Platelet Count 214 K/mm3 (150-450); RBC Distribution Width CV 13.1 % (11.6-14.6); RBC Distribution Width SD 44.2 fl (35.1-43.9); White Blood Count 4.3 K/mm3 (4.4-11.0)
[2020-09-06 12:43] LABS: ALB/GLOB Ratio 0.9 RATIO (0.9-2.4); AST(SGOT) 17 U/L (15-37); Alanine Aminotransfer ALT/SGPT 17 U/L (16-61); Albumin, Serum 3.6 g/dL (3.2-5.0); Alkaline Phosphatase 107 U/L (45-117); Anion Gap 5 (5-15); BUN 15 mg/dL (7-18); BUN/Creat Ratio 16.2 RATIO (10-20); Calcium,Total 9.1 mg/dL (8.5-10.1); Chloride 107 mmol/L (98-107); Creatinine, Serum 0.93 mg/dL (0.70-1.30); EST Glomerular Filtration Rate 86 mL/min (>60); Est Glom Filt Rate - Afr Amer 104 mL/min (>60); Glucose 87 mg/dL (74-106); Protein, Total 7.6 g/dL (6.4-8.2); Sodium Level 140 mmol/L (136-145); Thyroid Stim Hormone (TSH) 2.56 uIU/mL (0.358-3.74)
[2020-09-06 12:45] LABS: Vitamin D,25 Hydroxy 48.4 ng/mL
== END ==
PROVIDERS: PCP Family Medicine Geriatric Medicine; Visit Provider Family Medicine Geriatric Medicine
DX: E55.9 Vitamin D deficiency, unspecified (principal); R53.83 Other fatigue
CPT/HCPCS: 36415; 80053; 82306; 84443; 85025; 86769

== ENCOUNTER → 2020-11-22 15:38 | Outpatient (CLI) | payer MEDICARE, MEDICAID, SELFPAY ==
[2019-07-24 13:26] VITALS: BMI 24.1
[2020-11-22 16:53] LABS: Absolute Lymphocyte Count 1.43 X10^3/uL (0.83-4.51); Absolute Neutrophil Count 1.4 X10^3/uL (2.0-7.7); Basophil# 0.01 X10^3/uL; Basophil% 0.3 % (0-1); Eosinophil# 0.01 X10^3/uL; Eosinophils% 0.3 % (0-5); Hematocrit 37.8 % (40-54); Hemoglobin 12.2 g/dL (13.0-16.5); Lymphocyte # 1.43 X10^3/ul (0.83-4.51); Lymphocyte % 44.7 % (19-41); Mean Corp Hgb Conc 32.3 g/dL (32-36); Mean Corpuscular Hgb 30.3 pg (27.0-32.0); Mean Platelet Vol. 11.3 fl (6.2-12.0); Monocyte# 0.35 X10^3/uL; Monocyte% 10.9 % (0-10); NRBC Flagged by Analyzer 0 % (0-5); Neutrophil # 1.39 X10^3/uL (2.7-7.7); Neutrophil % 43.5 % (47-70); Platelet Count 127 K/mm3 (150-450); RBC Distribution Width CV 13.2 % (11.6-14.6); RBC Distribution Width SD 45.5 fl (35.1-43.9); Red Blood Count 4.02 M/mm3 (4.6-6.2); White Blood Count 3.2 K/mm3 (4.4-11.0)
[2020-11-22 17:01] LABS: Anion Gap 3 (5-15); BUN 13 mg/dL (7-18); BUN/Creat Ratio 12.9 RATIO (10-20); Calcium,Total 8.5 mg/dL (8.5-10.1); Chloride 101 mmol/L (98-107); Creatinine, Serum 1.01 mg/dL (0.70-1.30); EST Glomerular Filtration Rate 78 mL/min (>60); Est Glom Filt Rate - Afr Amer 94 mL/min (>60); Glucose 78 mg/dL (74-106); Potassium 4.1 mmol/L (3.5-5.1); Sodium Level 136 mmol/L (136-145)
== END ==
PROVIDERS: PCP Family Medicine Geriatric Medicine; Visit Provider Family Medicine Geriatric Medicine
DX: F05 Delirium due to known physiological condition (principal); N39.0 Urinary tract infection, site not specified
CPT/HCPCS: 36415; 80048; 85025; 87086

== ENCOUNTER → 2020-11-23 13:41 | Outpatient (CLI) | payer MEDICARE, MEDICAID, SELFPAY ==
[2019-07-24 13:26] VITALS: BMI 24.1
--- NOTE | 2020-11-23 13:49 | RAD_ITS ---
STUDY: X-RAY - ABDOMEN/PELVIS REASON FOR EXAM: Male, 70 years old. ABD PAIN TECHNIQUE: Single AP view of the abdomen / pelvis. COMPARISON: None. FINDINGS: Normal visualized lung bases. There is a moderate amount of colonic fecal material. The visualized liver, spleen and kidneys are grossly normal in size and morphology. Normal soft tissue structures. Normal visualized osseous structures. RAD/Abdomen Single View IMPRESSION: Moderate amount of fecal material is seen in the colon. Electronically Signed: Nate Santos MD at 14:48 EDT , Service support ,
== END ==
PROVIDERS: PCP Family Medicine Geriatric Medicine; Referring Provider Family Medicine Geriatric Medicine; Visit Provider Family Medicine Geriatric Medicine
DX: R10.9 Unspecified abdominal pain (principal); R68.83 Chills (without fever)
CPT/HCPCS: 74018; 87633; 87635; C9803; U0005; U0003

== ENCOUNTER → 2021-03-09 09:30 | Outpatient (CLI) | payer MEDICARE, MEDICAID, SELFPAY ==
[2021-03-09 10:23] LABS: Platelet Count 166 K/mm3 (150-450)
[2021-03-09 10:44] LABS: AST(SGOT) 21 U/L (15-37); Alanine Aminotransfer ALT/SGPT 24 U/L (16-61)
[2021-03-09 10:48] LABS: Valproic Acid (Depakene) Level 51 ug/mL (50-100)
== END ==
PROVIDERS: PCP Family Medicine; Referring Provider Psychiatry & Neurology Psychiatry; Visit Provider Psychiatry & Neurology Psychiatry
DX: F19.10 Other psychoactive substance abuse, uncomplicated (principal); R53.83 Other fatigue; Z79.899 Other long term (current) drug therapy
CPT/HCPCS: 36415; 80164; 82140; 84450; 84460; 85049

== ENCOUNTER → 2021-04-04 11:23 | Outpatient (CLI) | payer MEDICARE, MEDICAID, SELFPAY ==
--- NOTE | 2021-04-04 11:31 | RAD_ITS ---
STUDY: X-RAY - PELVIS AND LEFT HIP REASON FOR EXAM: Left hip pain and bruising. TECHNIQUE: 2 views of the pelvis and hip. COMPARISON: None. FINDINGS: There are small pelvic phleboliths. Normal bilateral iliac wings, sacroiliac joints and visualized sacrum. Normal bilateral superior and inferior pubic rami. Normal pubic symphysis. Normal bilateral ischial tuberosities. Normal visualized femoral head. Normal acetabulum. There is mild joint space narrowing of the superior lateral left hip joint. RAD/HIP, UNI W/ Pelvis 2-3 Views IMPRESSION: Mild left hip arthrosis. Electronically Signed: Omid Diaz MD at 14:15 EDT Tel , Service support ,
== END ==
PROVIDERS: PCP Family Medicine; Referring Provider Registered Nurse; Visit Provider Registered Nurse
DX: M25.552 Pain in left hip (principal); Z86.16 Personal history of COVID-19
CPT/HCPCS: 36415; 73502; 86769

== ENCOUNTER 2021-09-11 09:52 | Outpatient (CLI) | payer MEDICARE, MEDICAID, SELFPAY ==
[2021-09-11 10:46] LABS: Platelet Count 164 K/mm3 (150-450)
[2021-09-11 11:32] LABS: AST(SGOT) 18 U/L (15-37); Alanine Aminotransfer ALT/SGPT 19 U/L (16-61)
== END 2021-09-11 23:59 | disposition home or self-care (01) ==
PROVIDERS: PCP Family Medicine; Visit Provider Psychiatry & Neurology Psychiatry
DX: F19.10 Other psychoactive substance abuse, uncomplicated (principal); R53.83 Other fatigue; Z79.899 Other long term (current) drug therapy
CPT/HCPCS: 36415; 82140; 84450; 84460; 85049

== ENCOUNTER → 2021-12-27 | Outpatient (CLI) | payer MEDICARE, MEDICAID, SELFPAY ==
--- NOTE | 2021-12-27 14:43 | ST.MBS ---
Modified Barium Swallow - Patient Information Study Date: 12/27/21 Study Time: 13:00 Direct Billable Minutes: 110 Total Minutes procedure & reportin Diagnosis: Parkinson's Disease (G20) Referring Physician: Elsi James Reason for Referral: Objectively assess swallow function, risk for aspiration, and determine recommendations for least restrictive diet textures and compensatory strategies to improve safety of swallow. Medical History: The patient is a 68-year-old male with PMH including intellectual disability / MRDD, Parkinson?s disease, bipolar disorder, recurrent episodes of aspiration, and chronic aphasia (SEE EMR for full PMH). History of oropharyngeal dysphagia with at least 5 previous MBS studies completed since December 2013. Most recent MBS Study completed 08/10/2020. The study revealed moderate-severe oropharyngeal phase dysphagia with SILENT aspiration of thin liquid via straw and nectar thick liquid via sequential sips by cup. He was recommended for Puree Textures, Honey-thick Liquids with the following compensatory strategies: Small Bites, Small Sips, No Straws, Feed only when alert, Alternate bites/solids and sips/liquids, Sitting upright, Minimize/decrease distractions, Assist with verbal cues to use recommended strategies, and TOTAL FEEDING assistance. He has been re-referred for MBS study to monitor dysphagia. The patient is at risk for worsening dysphagia with Parkinson's disease. Pt's caregiver, Tika, was present for the study. She reports no concerns for diet tolerance or aspiration. Per caregiver, the patient feeds himself puree textures / honey thick liquids with self-feeding via sippy cup for sips of thickened liquids. Current Diet Ordered: Puree Textures / Honey Thick Liquids Dentition: Edentulous Mental Status: Impaired Respiratory Status: Oxygenating on Room Air - Penetration-Aspiration Scale Penetration-Aspiration Scale: OBJECTIVE ASSESSMENT OF SWALLOW FUNCTION (QUANTITATIVE ? PER TRIAL): PENETRATION / ASPIRATION SCALE (PEREIRA): 1 = does not enter airway 2 = enters airway/above vocal folds/ejected 3 = enters airway/above vocal folds/not ejected 4 = enters airway/contacts vocal folds/ejected 5 = enters airway/contacts vocal folds/not ejected 6 = enters airway/below vocal folds/ejected 7 = enters airway/below vocal folds/not ejected despite effort 8 = enters airway/below vocal folds/no effort VIDEOFLOROSCOPIC SCALE SCORE (PEREIRA): Grade I = aspiration of material that has penetrated into the laryngeal vestibule, intact cough reflex Grade II = aspiration < 10 % of the bolus, intact cough reflex Grade III = aspiration of < 10 % of the bolus, reduced cough reflex or aspiration of > 10 % of the bolus, intact cough reflex Grade IV = aspiration of > 10 % of the bolus, reduced cough reflex - Penetration-Aspiration Scale Score Thin Liquid via teaspoon Comment: Could not score as the patient moved out of the view of the fluoroscopy. Thin Liquid via teaspoon Trial 2 Comment: Could not score as the patient moved out of the view of the fluoroscopy. Cough after completion of sip. Honey Thick Liquid via teaspoon Result: 1= does not enter airway Pudding via teaspoon Result: 1= does not enter airway [place] Thick Liquid via teaspoon Result: 1= does not enter airway Thin Liquid via teaspoon Trial 3 Result: 1= does not enter airway - Oral Phase Labial Seal: Escape beyond mid-chin Tongue Control During Bolus Hold: Posterior escape of less than half of bolus Bolus Transport/Lingual Motion: Delayed initiation of tongue motion Oral Residue: Trace residue lining oral structures - Pharyngeal Phase Initiation of Pharyngeal Swallow: Bolus head in valleculae Soft Palate Elevation: No bolus between soft palate and pharyngeal wall Laryngeal Elevation: Partial superior movement thyroid cart/partial apprx aryt-epig petiole Anterior Hyoid Excursion: Partial anterior movement Epiglottic Movement: Complete inversion Laryngeal Vestibule Closure at Height of Swallow: Complete; no air/contrast in laryngeal vestibule Pharyngeal Stripping Wave: Present - diminished Pharyngoesophageal Segment Opening: Parital distension and partial duration; parital obstruction of flow Tongue Base Retraction: Narrow column of contrast between tongue base & post. pharyngeal wall Pharyngeal Residue: Collection of residue within or on pharyngeal structures - Diagnosis/Impression Diagnosis: Moderate oropharyngeal phase dysphagia (R13.12) Impression: The oral phase is marked by... -Delayed tongue initiation for A-P bolus transport. -Premature posterior loss of pudding to the vallecula prior to swallow onset. -Trace oral residues after the swallow. The pharyngeal phase is marked by... -Moderate pharyngeal residue after the swallow with honey thickened liquid, which increases the patient's risk for post prandial aspiration. -Decreased laryngeal elevation and anterior hyoid excursion. -No laryngeal penetration or aspiration observed during the study; however, the SURGICAL GARMENT INSPECTOR cannot rule out aspiration with first two trials of thin liquid by tsp. C-P bar present at the level of C6; however, it did not appear to impact bolus clearance through the upper esophageal sphincter during the study. Limited trials completed during the study as he required maximum verbal support from the SURGICAL GARMENT INSPECTOR, automotive repair technician, and caregiver to consume the above noted trials. SURGICAL GARMENT INSPECTOR will recommend the patient continue with current diet textures (puree textures / honey thick liquids) as the patient has a history of SILENT aspiration of thin and nectar thick liquids when consumed by sequential sips. If the patient is able to maintain single, small sip size of honey thick liquids, will recommend he continue self feeding via sippy cup; however, he will require feeding assistance with honey thick liquids if he consumes sips with rapid rate. - Recommendations Diet: Puree Textures, Honey-thick Liquids Compensatory Strategies: Small Bites, Small Sips, Slow Rate, Sitting upright, Remain sitting upright for 30 minutes after PO intake, Minimize/decrease distractions Supervision: 1:1 Close Supervision - Pt has a history of impulsivity with rapid consumption of liquids. He also has a hx of SILENT aspiration of thin and nectar thick liquids via sequential sips. Will recommend total assistance feeding with drinks if pt is unable to control bolus size/rate w/ his sippy cup. Recommend Repeat Modified Barium Swallow: Yes - Repeat MBS study in 1-2 years or if increased s/s of aspiration with oral intake. Need for Skilled Speech Therapy Services: Yes Comment: Limited trials observed during the study as he required max verbal encouragement from the patient, patient's caregiver, and the automotive repair technician to participate. Will recommend speech therapy evaluation to further assess the patient's swallow function and aspiration risk at a meal. Will recommend thorough education for pt, family, and caregivers regarding recommended aspiration precautions due to history of moderate-severe oropharyngeal dysphagia and SILENT aspiration. Education Completed: 1. Described result of evaluation., 4. Family/caregivers understand evaluation & agree w/ goals & tx plan., 7. Pt requires further education on strategies & risks., 8. Family/caregivers require further education on strategies & risks. - Status Active ST Patient: Active - Contact Information [facility] Speech Therapy:: Sarah Chopra M.A. [facility]-S[facility]GICAL GARMENT INSPECTOR Speech-Language Pathologist [facility] [address] [place] [address] [email or web address] [phone] 12/27/21 15:06
== END | disposition home or self-care (01) ==
PROVIDERS: PCP Family Medicine; Referring Provider Family Medicine; Visit Provider Family Medicine
DX: F72 Severe intellectual disabilities (principal)
CPT/HCPCS: 74230; 92611

== ENCOUNTER → 2022-01-24 | Outpatient (CLI) | payer MEDICARE, MEDICAID, SELFPAY ==
[2022-01-24 15:20] LABS: Erythrocyte Sedimentation Rate 14 mm/hr (0-20)
[2022-01-24 15:23] LABS: Absolute Lymphocyte Count 1.68 X10^3/uL (0.83-4.51); Absolute Neutrophil Count 1.1 X10^3/uL (2.0-7.7); Basophil# 0.03 X10^3/uL; Basophil% 0.9 % (0-1); Eosinophil# 0.03 X10^3/uL; Eosinophils% 0.9 % (0-5); Hematocrit 41.6 % (40-54); Hemoglobin 13.4 g/dL (13.0-16.5); Lymphocyte # 1.68 X10^3/ul (0.83-4.51); Lymphocyte % 52.2 % (19-41); Mean Corp Hgb Conc 32.2 g/dL (32-36); Mean Corpuscular Hgb 30.4 pg (27.0-32.0); Mean Corpuscular Volume 94.3 fL (80-94); Mean Platelet Vol. 10.9 fl (6.2-12.0); Monocyte% 12.4 % (0-10); NRBC Flagged by Analyzer 0 % (0-5); Neutrophil # 1.08 X10^3/uL (2.7-7.7); Neutrophil % 33.6 % (47-70); Platelet Count 214 K/mm3 (150-450); RBC Distribution Width CV 13.2 % (11.6-14.6); RBC Distribution Width SD 45.1 fl (35.1-43.9); Red Blood Count 4.41 M/mm3 (4.6-6.2); White Blood Count 3.2 K/mm3 (4.4-11.0)
[2022-01-24 15:43] LABS: ALB/GLOB Ratio 0.8 RATIO (0.9-2.4); AST(SGOT) 19 U/L (15-37); Alanine Aminotransfer ALT/SGPT 21 U/L (16-61); Albumin, Serum 3.3 g/dL (3.2-5.0); Alkaline Phosphatase 93 U/L (45-117); Anion Gap 4 (5-15); BUN 4 mg/dL (7-18); BUN/Creat Ratio 5.2 RATIO (10-20); Calcium,Total 9.1 mg/dL (8.5-10.1); Chloride 104 mmol/L (98-107); Creatinine, Serum 0.77 mg/dL (0.70-1.30); EST Glomerular Filtration Rate 106 mL/min (>60); Est Glom Filt Rate - Afr Amer 129 mL/min (>60); Globulin 4.3 g/dL (2.2-4.2); Glucose 72 mg/dL (74-106); Potassium 3.9 mmol/L (3.5-5.1); Protein, Total 7.6 g/dL (6.4-8.2); Sodium Level 140 mmol/L (136-145); Thyroid Stim Hormone (TSH) 1.76 uIU/mL (0.358-3.74)
== END | disposition home or self-care (01) ==
LOC: MFPLAB 11:39
PROVIDERS: PCP Family Medicine; Referring Provider Family Medicine; Visit Provider Family Medicine
DX: R63.4 Abnormal weight loss (principal); Z12.5 Encounter for screening for malignant neoplasm of prostate
CPT/HCPCS: 36415; 80053; 84153; 84443; 85025; 85652; G0103

== ENCOUNTER → 2022-08-07 | Outpatient (CLI) | payer MEDICARE, MEDICAID, SELFPAY ==
[2022-08-07 09:38] LABS: Platelet Count 209 K/mm3 (150-450)
[2022-08-07 10:09] LABS: AST(SGOT) 22 U/L (15-37); Alanine Aminotransfer ALT/SGPT 18 U/L (16-61); PSA,Total- Diagnostic 1.33 ng/mL (0.0-4.0)
[2022-08-07 10:14] LABS: Valproic Acid (Depakene) Level 36 ug/mL (50-100)
== END | disposition home or self-care (01) ==
PROVIDERS: PCP Family Medicine; Referring Provider Psychiatry & Neurology Psychiatry; Visit Provider Psychiatry & Neurology Psychiatry
DX: R97.20 Elevated prostate specific antigen [PSA] (principal); Z79.899 Other long term (current) drug therapy
CPT/HCPCS: 36415; 80164; 82140; 84153; 84450; 84460; 85049

== ENCOUNTER → 2022-09-07 | Outpatient (CLI) | payer MEDICARE, MEDICAID, SELFPAY ==
[2022-09-07 17:48] LABS: Erythrocyte Sedimentation Rate 17 mm/hr (0-20)
[2022-09-07 18:53] LABS: ALB/GLOB Ratio 0.8 RATIO (0.9-2.4); AST(SGOT) 22 U/L (15-37); Alanine Aminotransfer ALT/SGPT 23 U/L (16-61); Albumin, Serum 3.3 g/dL (3.2-5.0); Alkaline Phosphatase 103 U/L (45-117); Anion Gap 4 (5-15); BUN 13 mg/dL (7-18); BUN/Creat Ratio 14.4 RATIO (10-20); Calcium,Total 9.3 mg/dL (8.5-10.1); Chloride 101 mmol/L (98-107); EST Glomerular Filtration Rate 88 mL/min (>60); Est Glom Filt Rate - Afr Amer 107 mL/min (>60); Globulin 4.4 g/dL (2.2-4.2); Glucose 78 mg/dL (74-106); Potassium 4.1 mmol/L (3.5-5.1); Protein, Total 7.7 g/dL (6.4-8.2); Sodium Level 136 mmol/L (136-145); Thyroid Stim Hormone (TSH) 0.94 uIU/mL (0.358-3.74)
== END | disposition home or self-care (01) ==
PROVIDERS: PCP Family Medicine; Referring Provider Family Medicine; Visit Provider Family Medicine
DX: R63.4 Abnormal weight loss (principal)
CPT/HCPCS: 36415; 80053; 84443; 85652

== ENCOUNTER → 2023-08-27 | Outpatient (CLI) | payer MEDICARE, MEDICAID, SELFPAY ==
[2023-08-27 09:00] LABS: Hematocrit 41.7 % (40-54); Hemoglobin 13.8 g/dL (13.0-16.5); Mean Corp Hgb Conc 33.1 g/dL (32-36); Mean Corpuscular Hgb 30.2 pg (27.0-32.0); Mean Corpuscular Volume 91.2 fL (80-94); Mean Platelet Vol. 10.1 fl (6.2-12.0); Platelet Count 165 K/mm3 (150-450); RBC Distribution Width CV 12.9 % (11.6-14.6); RBC Distribution Width SD 43.1 fl (35.1-43.9); Red Blood Count 4.57 M/mm3 (4.6-6.2); White Blood Count 4.1 K/mm3 (4.4-11.0)
[2023-08-27 09:32] LABS: Valproic Acid (Depakene) Level 52 ug/mL (50-100)
[2023-08-27 09:35] LABS: ALB/GLOB Ratio 1.1 RATIO (0.9-2.4); AST(SGOT) 20 U/L (15-37); Alanine Aminotransfer ALT/SGPT 17 U/L (16-61); Alkaline Phosphatase 79 U/L (45-117); Anion Gap 4 (5-15); BUN 9 mg/dL (7-18); BUN/Creat Ratio 11.3 RATIO (10-20); Calcium,Total 9.5 mg/dL (8.5-10.1); Chloride 102 mmol/L (98-107); EST Glomerular Filtration Rate 101 mL/min (>60); Est Glom Filt Rate - Afr Amer 123 mL/min (>60); Globulin 3.8 g/dL (2.2-4.2); Glucose 83 mg/dL (74-106); PSA,Total - Annual Screen 0.55 ng/mL (0.00-4.00); Potassium 3.7 mmol/L (3.5-5.1); Protein, Total 7.8 g/dL (6.4-8.2); Sodium Level 136 mmol/L (136-145)
== END | disposition home or self-care (01) ==
LOC: LAB 08:37
PROVIDERS: PCP Family Medicine; Referring Provider Nurse Practitioner; Visit Provider Nurse Practitioner
DX: R53.83 Other fatigue (principal); F19.10 Other psychoactive substance abuse, uncomplicated; Z79.899 Other long term (current) drug therapy; Z12.5 Encounter for screening for malignant neoplasm of prostate
CPT/HCPCS: 36415; 80053; 80164; 82140; 84153; 85027; G0103

== ENCOUNTER → 2023-10-04 | Outpatient (CLI) | payer MEDICARE, MEDICAID, SELFPAY ==
[2023-10-04 15:51] LABS: T4 Free Direct 0.74 ng/dL (0.76-1.46)
== END | disposition home or self-care (01) ==
LOC: MFPLAB 14:07
PROVIDERS: PCP Family Medicine; Visit Provider Family Medicine
DX: E03.9 Hypothyroidism, unspecified (principal)
CPT/HCPCS: 36415; 84439; 84443

== ENCOUNTER → 2023-12-31 | Outpatient (CLI) | payer MEDICARE, MEDICAID, SELFPAY ==
--- NOTE | 2023-12-31 13:41 | ST.MBS ---
Modified Barium Swallow Patient Information Study Date: 12/31/23 Study Time: 13:00 Direct Billable Minutes: 79 Total Minutes procedure & reportin Diagnosis: Severe MRDD F72 Referring Physician: Elsi James Reason for Referral: Objectively assess swallow function, assess risk for aspiration, and determine recommendations for least restrictive diet textures and compensatory strategies to improve safety of swallow. Medical History: The patient is a 73-year-old male with PMH including intellectual disability / MRDD, Parkinson?s disease, bipolar disorder, recurrent episodes of aspiration, and chronic aphasia (SEE EMR for full PMH). History of oropharyngeal dysphagia with at least 6 previous MBSS completed since December 2013. Most recent MBS Study completed 12/27/2021. The study revealed moderate oropharyngeal phase dysphagia. He was recommended for Puree Textures, Honey-thick Liquids with the following strategies Small Bites, Small Sips, Slow Rate, Sitting upright, Remain sitting upright for 30 minutes after PO intake, Minimize/decrease distractions; 1:1 Close Supervision - Pt has a history of impulsivity with rapid consumption of liquids. He also has a hx of SILENT aspiration of thin and nectar thick liquids via sequential sips. Will recommend total assistance feeding with drinks if pt is unable to control bolus size/rate w/ his sippy cup. Repeat MBS study in 1-2 years or if increased s/s of aspiration with oral intake. ST services - Limited trials observed during the study as he required max verbal encouragement from the patient, patient's caregiver, and the paint prep technician to participate. Will recommend speech therapy evaluation to further assess the patient's swallow function and aspiration risk at a meal. Will recommend thorough education for pt, family, and caregivers regarding recommended aspiration precautions due to history of moderate-severe oropharyngeal dysphagia and SILENT aspiration. Today, he re-presents for MBSS due to sister, Vivian's, concerns for sounding like he is swallowing hard and getting too much air. Per caregiver, Parisa, and sister, Ayah, he appears to be tolerating puree textures / thin liquids without concerns for aspiration. He has had no PNA since previous MBSS. NETWORK CONTROL OPERATOR asked if he is eating/hydrating well on this modified diet, and caregiver and sister confirmed he is. Current Diet Ordered: Puree / Honey Thick liquids Dentition: Edentulous Mental Status: Impaired Respiratory Status: Oxygenating on Room Air Penetration-Aspiration Scale Penetration-Aspiration Scale: OBJECTIVE ASSESSMENT OF SWALLOW FUNCTION (QUANTITATIVE ? PER TRIAL): PENETRATION / ASPIRATION SCALE (PEREIRA): 1 = does not enter airway 2 = enters airway/above vocal folds/ejected 3 = enters airway/above vocal folds/not ejected 4 = enters airway/contacts vocal folds/ejected 5 = enters airway/contacts vocal folds/not ejected 6 = enters airway/below vocal folds/ejected 7 = enters airway/below vocal folds/not ejected despite effort 8 = enters airway/below vocal folds/no effort VIDEOFLOROSCOPIC SCALE SCORE (PEREIRA): Grade I = aspiration of material that has penetrated into the laryngeal vestibule, intact cough reflex Grade II = aspiration < 10 % of the bolus, intact cough reflex Grade III = aspiration of < 10 % of the bolus, reduced cough reflex or aspiration of > 10 % of the bolus, intact cough reflex Grade IV = aspiration of > 10 % of the bolus, reduced cough reflex Penetration-Aspiration Scale Score Thin Liquid via teaspoon: Result: 1= does not enter airway Thin Liquid via teaspoon Trial 2: Result: 1= does not enter airway Thin Liquid via small single sip: cup: Result: 1= does not enter airway [place] Thick Liquid via small single sip: cup: Result: 1= does not enter airway Honey Thick Liquid via small single sip: cup: Result: 1= does not enter airway Comment: Self administered Pudding via teaspoon: Result: 1= does not enter airway Comment: Esophageal screen - All trials appeared to have some retention in the upper esophagus with a pouch-like collection of barium seen above a CP bar. He had retrograde flow of various consistencies through the upper esophageal sphincter to the pyriforms. During esophageal screen of pudding, a majority of the bolus did clear through the esophagus. [place] Thick Liquid via large single sip: cup: Result: 3= enters airways/above vocal folds/not ejected Comment: Self-administered Thin Liquid via sequential sips: cup: Result: 8= enters airway/below vocal folds/no effort Comment: Self-administered [place] Thick Liquid via sequential sips: cup: Result: 8= enters airway/below vocal folds/no effort Comment: Self administered Oral Phase Labial Seal: Escape beyond interlabial space; no extension beyond alonzo border Tongue Control During Bolus Hold: Posterior escape of greater than half of bolus Bolus Transport/Lingual Motion: Repetitive/disorganized tongue motion Oral Residue: Majority of bolus remaining (Piecemeal deglutition most notable with large and sequential sips) Pharyngeal Phase Initiation of Pharyngeal Swallow: Bolus head in pyriforms Soft Palate Elevation: Trace column of contrast/air between soft palate and pharyngeal wall Laryngeal Elevation: Partial superior movement thyroid cart/partial apprx aryt-epig petiole Anterior Hyoid Excursion: Partial anterior movement Epiglottic Movement: Complete inversion Laryngeal Vestibule Closure at Height of Swallow: Incomplete; narrow column of air/contrast in laryngeal vestibule Pharyngeal Stripping Wave: Present - diminished Pharyngoesophageal Segment Opening: Parital distension and partial duration; parital obstruction of flow Tongue Base Retraction: Wide column of contrast between tongue base & post. pharyngeal wall Pharyngeal Residue: Collection of residue within or on pharyngeal structures Esophageal Phase Esophageal Clearance: Esophageal retention w/ retrograde flow through pharyngoesophageal seg Diagnosis/Impression Diagnosis: Moderate-severe oropharyngeal dysphagia R13.12 Impression: The oral phase is marked by.. -Poor bolus control with premature loss of >1/2 the bolus of various consistencies to the pharynx prior to swallow onset. -Disorganized tongue motion for A-P transport. -Piecemeal deglutition of large, sequential sips. Pt did mostly clear oral residues with independent use of multiple swallows. -Did not assess mastication due to edentulous status and decreased attention to task. The pharyngeal phase is primarily marked by... -Delayed swallow onset. -Decreased airway closure due to decreased anterior hyoid excursion and laryngeal elevation. -Moderate pharyngeal residues due to decreased tongue base retraction, UES opening/duration, and pharyngeal stripping wave. -SILENT aspiration of sequential sips of thin and mildly/nectar thick liquids via cup. Decreased bolus size/rate are most effective in decreasing risk for aspiration. Patient had a pouch-like collection of barium just above a large cricopharyngeal bar at the level of C7 throughout the study. Some of the barium contrast was observed to have retrograde flow through the upper esophageal sphincter to the pharynx after the swallow. This retrograde flow was most notable with honey/moderately thick liquid, sequential thin liquid, and sequential nectar/mildly thick liquid trials. He is at increased risk for aspiration after the swallow due to extent of pharyngeal residues. NETWORK CONTROL OPERATOR to review images with radiologist, Dr. Santos, on 01/01/2024. Recommendations Diet: Puree Textures and Honey-thick Liquids Compensatory Strategies: Small Bites, Small Sips, Slow Rate, Sitting upright and Remain sitting upright for 30 minutes after PO intake Supervision: 1:1 Close Supervision Recommend Repeat Modified Barium Swallow: Yes (Repeat MBSS in 1-2 years as pt is at risk for worsening swallow function d/t diagnosis of PD. Re-assess sooner if increased s/s of aspiration or worsening respiratory status.) Need for Skilled Speech Therapy Services: Yes Comment: Will recommend ST services at his skilled nursing to trial use of a bolus control cup (10cc) with thin liquids with an NETWORK CONTROL OPERATOR to consider diet advancement. When considering diet advancement, please monitor respiratory status closely due to SILENT aspiration of thin and mildly thick liquids. Education Completed: 1. Described result of evaluation., 4. Family/caregivers understand evaluation & agree w/ goals & tx plan. and 7. Pt requires further education on strategies & risks. Status Active ST Patient: Active Contact Information [facility] Speech Therapy:: Sarah Chopra M.A. CCC-NETWORK CONTROL OPERATOR? Speech-Language Pathologist?? [facility] [address] [place] [address]? [email or web address]?? [phone]
== END | disposition home or self-care (01) ==
LOC: RAD 12:42
PROVIDERS: PCP Family Medicine; Referring Provider Family Medicine; Visit Provider Family Medicine
DX: F72 Severe intellectual disabilities (principal)
CPT/HCPCS: 74230; 92611

== ENCOUNTER → 2024-03-04 | Outpatient (CLI) | payer MEDICARE, MEDICAID, SELFPAY ==
[2024-03-04 12:43] LABS: T4 Total, Thyroxin 9.2 ug/dL (4.5-12.1)
== END | disposition home or self-care (01) ==
LOC: MTLAB 10:01
PROVIDERS: PCP Family Medicine; Referring Provider Family Medicine; Visit Provider Family Medicine
DX: E03.9 Hypothyroidism, unspecified (principal)
CPT/HCPCS: 36415; 84436; 84443

== ENCOUNTER → 2024-03-16 | Outpatient (CLI) | payer MEDICARE, MEDICAID, SELFPAY ==
[2024-03-16 12:13] LABS: Erythrocyte Sedimentation Rate < 1 mm/hr (0-20)
[2024-03-16 12:16] LABS: Absolute Lymphocyte Count 1.85 X10^3/uL (0.83-4.51); Absolute Neutrophil Count 2.1 X10^3/uL (2.0-7.7); Basophil# 0.03 X10^3/uL; Basophil% 0.7 % (0-1); Eosinophil# 0.05 X10^3/uL; Eosinophils% 1.1 % (0-5); Hematocrit 38.7 % (40-54); Hemoglobin 12.6 g/dL (13.0-16.5); Lymphocyte # 1.85 X10^3/ul (0.83-4.51); Lymphocyte % 41.2 % (19-41); Mean Corp Hgb Conc 32.6 g/dL (32-36); Mean Corpuscular Hgb 30.6 pg (27.0-32.0); Mean Corpuscular Volume 93.9 fL (80-94); Mean Platelet Vol. 10.9 fl (6.2-12.0); Monocyte# 0.41 X10^3/uL; Monocyte% 9.1 % (0-10); NRBC Flagged by Analyzer 0 % (0-5); Neutrophil # 2.14 X10^3/uL (2.7-7.7); Neutrophil % 47.7 % (47-70); Platelet Count 209 K/mm3 (150-450); RBC Distribution Width CV 13.3 % (11.6-14.6); RBC Distribution Width SD 45.4 fl (35.1-43.9); Red Blood Count 4.12 M/mm3 (4.6-6.2); White Blood Count 4.5 K/mm3 (4.4-11.0)
[2024-03-16 12:37] LABS: ALB/GLOB Ratio 1.1 RATIO (0.9-2.4); AST(SGOT) 21 U/L (15-37); Alanine Aminotransfer ALT/SGPT 18 U/L (16-61); Albumin, Serum 3.5 g/dL (3.2-5.0); Alkaline Phosphatase 90 U/L (45-117); Anion Gap 6 (5-15); BUN 9 mg/dL (7-18); BUN/Creat Ratio 12.5 RATIO (10-20); Calcium,Total 9.7 mg/dL (8.5-10.1); Chloride 102 mmol/L (98-107); Creatinine, Serum 0.72 mg/dL (0.70-1.30); EST Glomerular Filtration Rate 114 mL/min (>60); Est Glom Filt Rate - Afr Amer 138 mL/min (>60); Globulin 3.3 g/dL (2.2-4.2); Glucose 66 mg/dL (74-106); PSA,Total- Diagnostic 1.45 ng/mL (0.0-4.0); Potassium 4.1 mmol/L (3.5-5.1); Protein, Total 6.8 g/dL (6.4-8.2); Sodium Level 138 mmol/L (136-145)
== END | disposition home or self-care (01) ==
PROVIDERS: PCP Family Medicine; Referring Provider Family Medicine; Visit Provider Family Medicine
DX: R63.4 Abnormal weight loss (principal); Z12.5 Encounter for screening for malignant neoplasm of prostate
CPT/HCPCS: 36415; 80053; 84153; 85025; 85652; G0103

== ENCOUNTER 2024-06-01 12:05 | Emergency (ER) | payer MEDICARE, MEDICAID, SELFPAY ==
[2024-06-01 12:06] VITALS: BP 112/99; PULSE 64; RESP 16; TEMP 36.2; O2SAT 95
--- NOTE | 2024-06-01 12:25 | EX.ED.DYSGE1 ---
HPI History of Present Illness Chief Complaint: General Illness Informant: other (snf staff) Onset/Context/Timing Onset: Days Context: Gradual Onset Timing: Continuous Current Severity: Mild Maximum Severity: Mild Narrative Narrative: 73-year-old gentleman with developmental delay currently lives in a half-way. Sent in because he is currently on nystatin and his oral thrush is not getting better and his family was concerned primarily his sister who is his power of sign painter helper that he has had weight loss. Patient himself is unable to give any significant history. Prior similar symptoms: Yes Recent Illness/Hospitalization: No [facility] Medical History COVID-19 Home Medications ?Medication ?Instructions ?Recorded ?Last Taken ?Type aspirin 81 mg chewable tablet 81 mg PO DAILY@0800 HEART HEALTH 04/04/16 07/24/19 History divalproex 125 mg capsule,delayed 125 mg PO TID 04/04/16 07/24/19 History release sprinkle polyethylene glycol 3350 17 gram 17 g PO DAILY CONSTIPATION 04/04/16 07/24/19 History oral powder packet primidone 50 mg tablet 50 mg PO DAILY@1999 SEIZURE 04/04/16 07/23/19 History simvastatin 40 mg tablet 40 mg PO QHS 04/04/16 07/23/19 History Quetiapine Fumarate [Seroquel Xr] 50 mg PO DAILY@0800 10/04/16 07/24/19 History lubiprostone 24 mcg capsule 24 mcg PO BID IBS 10/19/16 07/24/19 History (Amitiza) bimatoprost 0.01 % eye drops 1 drp EACH EYE DAILY@1600 07/24/19 07/23/19 History brimonidine 0.2 %-timolol 0.5 % 1 drp EACH EYE BID 07/24/19 07/24/19 History eye drops clonazepam 1 mg tablet 1 mg PO DAILY@1999 ANXIETY 07/24/19 07/23/19 History ergocalciferol (vitamin D2) 1,250 50,000 unit PO QMONTH 07/24/19 06/26/19 History mcg (50,000 unit) capsule famotidine 40 mg tablet 40 mg PO DAILY GERD 07/24/19 07/24/19 History levothyroxine 25 mcg tablet 25 mcg PO DAILY THYROID 07/24/19 07/24/19 History melatonin 3 mg tablet 4.5 mg PO DAILY@1700 SLEEP 07/24/19 07/23/19 History potassium chloride 10 mEq 10 meq PO DAILY SUPPLEMENT 07/24/19 07/24/19 History tablet,extended release(part/cryst) quetiapine 50 mg tablet,extended 100 mg PO DAILY@2000 DEPRESSION 07/24/19 07/23/19 History release 24 hr tamsulosin 0.4 mg capsule 0.4 mg PO QHS PROSTATE 07/24/19 07/23/19 History fluconazole 200 mg tablet 200 mg PO DAILY #1 TAB 06/01/24 Unknown Rx (Diflucan) Allergy/AdvReac Type Severity Reaction Status Date / Time benztropine mesylate (From Allergy Unknown Verified 06/01/24 12:10 Cogentin) divalproex sodium (From Allergy Unknown Verified 06/01/24 12:10 Depakote) paroxetine HCl (From Paxil) Allergy Unknown Verified 06/01/24 12:10 risperidone (From Risperdal) Allergy Unknown Verified 06/01/24 12:10 venlafaxine HCl (From Allergy Unknown Verified 06/01/24 12:10 Effexor) Social History Smoking Status: Never smoker ROS ROS ED ROS Narrative No recent illness. Decreased oral intake. Per half-way staff. Patient is unable to give any history. Review of Systems ROS Unobtainable: due to mental status EXAM Physical Exam Narrative Exam Narrative: Well-appearing 73-year-old male. Vital signs stable afebrile. H EENT exam pupils round reactive light. Mytrex membranes. Small thrush on his tongue. No trouble swallowing or breathing. Neck nontender no lymphadenopathy. Lungs clear to auscultation bilaterally. Heart regular rate and rhythm rate about 65 no murmur. Chest wall ribs nontender. Abdomen soft nontender. Nondistended normal bowel sounds no peritoneal signs. No hernia or mass. No distention. Moving all 4 extremities. Nontender no edema. Good gate manager strength. Back nontender. Neurologically he is awake. His eyes are open. He is interactive. He is not speaking to me. He does follow limited commands like sticking her tongue out. Const Vital Signs: 06/01/24 12:06 Temperature 97.2 F L Temperature Source Temporal Pulse Rate 64 Respiratory Rate 16 Blood Pressure 112/99 H Blood Pressure Mean 103 Pulse Ox 95 Oxygen Delivery Method Room Air Positive well nourished and well developed; Negative for obese, cachectic, contractures or unkempt General Appearance ED: well developed and NAD; Negative for unkempt, cachectic, contractures, cyanotic, diaphoretic or pallor Nutritional Appearance: Negative for cachectic or obese HEENT Reports moist mucous membranes Negative for trauma or tenderness Eyes PERRL and EOMs intact bilaterally General Eye ED: Negative for pale conjunctiva Neck no lymphadenopathy, supple and no JVD General: Negative for tenderness Lymph Lymphatic: Negative for other Chest Wall inspection of chest normal and palpation of chest normal Chest: Negative for other Resp normal respiratory effort and clear to auscultation bilaterally Effort and Inspection: Negative for retractions Auscultation: Negative for rales, rhonchi, wheezes or diminished lung sounds Cardio regular rate, regular rhythm, S1 normal heart sound, S2 normal heart sound and no murmurs Palpation: Negative for palpable S3 or palpable S4 Rate: Negative for bradycardia or tachycardic Rhythm: Negative for abnormal rhythm GI normal to inspection, nondistended, normoactive bowel sounds, non-tender, non-distended and no masses Palpation: soft; Negative for tender, guarding or rebound tenderness present Back/Spine no CVA tenderness General Back: Negative for CVA tenderness Cervical Spine: Negative for cervical spine tenderness Thoracic Spine / Upper Back: Negative for thoracic spinal tenderness or paraspinal muscle tenderness Lumbar Spine / Lower Back: Negative for lumbar spinal tenderness Extremity normal to inspection General Extremety ED: Negative for edema or tenderness General Extremity: Negative for edema Neuro oriented x3 and CN's II-XII intact bilaterally Sensorium / Orientation: alert; Negative for orientation impaired, lethargic or stuporous Motor Exam: strength 5/5 throughout Psych mental status grossly normal Appearance: Negative for unkempt Attitude: No agitated Mood & Affect: Negative for depressed, anxious or tearful Skin no rashes or lesions noted, no wounds and skin turgor normal General Skin Exam: elasticity normal; Negative for jaundice or pallor Lesions: No lesion noted Rashes: No rashes noted Trauma: Negative for abrasion Wounds: Negative for wounds noted MDM MDM MDM Narrative Medical decision making narrative: 73-year-old MRDD male to half-way with weight loss and oral thrush. Be given oral Diflucan. Screening labs will be obtained. I did speak to the half-way staff it is with him and also his sister via phone and they understand that it is limited what we can tell from the labs for the weight loss and will probably need further evaluation. Sister said he was unable to have a colonoscopy in the past due to issues with sedating him. Repeat exam at 1:23 PM unchanged. I went over the test results with the patient and the staff from the half-way. He will need outpatient follow-up with his primary care physician for further evaluation of weight loss. His labs do not show any specific causes today. He may need further testing. History & Record Review Discussion w/independent historian: Patient, Family and Other (snf staff.) Lab Data Attestation: I reviewed the patient's lab results. Lab results narrative: CBC normal. White count 8. H&H 14 and 41. Platelets 272. Electrolytes show gap of 3. Normal BUN of 12 creatinine 0.67. Liver enzymes are normal. Labs: Laboratory Results - last 24 hr 06/01/24 12:45 WBC 8.7 RBC 4.47 L Hgb 14.0 Hct 41.2 MCV 92.2 MCH 31.3 MCHC 34.0 RDW Std Deviation 45.6 H RDW Coeff of Chuy 13.3 Plt Count 272 MPV 9.1 Immature Gran % (Auto) 0.900 Neut % (Auto) 80.8 H Lymph % (Auto) 13.0 L [place] % (Auto) 4.7 Eos % (Auto) 0.1 Baso % (Auto) 0.5 Absolute Neuts (auto) 7.0 Absolute Lymphs (auto) 1.13 Nucleated RBC % 0 Sodium 136 Potassium 4.3 Chloride 98 Carbon Dioxide 34.0 H Anion Gap 3 L BUN 12 Creatinine 0.67 L Est GFR (MDRD) Af Amer 150 Est GFR (MDRD) Non-Af 124 BUN/Creatinine Ratio 18.0 Glucose 88 Calcium 9.4 Total Bilirubin 0.50 AST 23 ALT 33 Alkaline Phosphatase 79 Total Protein 7.3 Albumin 3.4 Globulin 3.9 Albumin/Globulin Ratio 0.9 Discharge Plan Triage Chief Complaint: General Illness ED Provider: Martin Owen Dx/Rx/DC Orders Clinical Impression: Candidiasis of mouth, Weight loss, History of developmental delay Instructions: Deirdre Infection: Thrush Prescriptions: New fluconazole [Diflucan] 200 mg tablet 200 mg PO DAILY Qty: 1 0RF Rx Instructions: Take the next Diflucan tablet in 3 days. No Action primidone 50 MG tablet 50 mg PO DAILY@2000 polyethylene glycol 3350 17 GM packet 17 g PO DAILY Patient Comments: CONSTIPATION simvastatin 40 MG tablet 40 mg PO QHS aspirin 81 MG tablet,chewable 81 mg PO DAILY@0800 Patient Comments: HEART HEALTH divalproex 125 MG capsule, delayed rel sprinkle 125 mg PO TID Patient Comments: OPEN AND SPRINKLE IN APPLE SAUCE. SEIZURES Rx Instructions: takes at 0800, 1400, 2000 Quetiapine Fumarate [Seroquel Xr] 50 MG Tab.Sr.24h 50 mg PO DAILY@0800 Patient Comments: SLEEP/MOOD lubiprostone [Amitiza] 24 MCG capsule 24 mcg PO BID famotidine 40 MG tablet 40 mg PO DAILY clonazepam 1 MG tablet 1 mg PO DAILY@2000 melatonin 3 MG tablet 4.5 mg PO DAILY@1700 levothyroxine 25 MCG tablet 25 mcg PO DAILY tamsulosin 0.4 mg capsule 0.4 mg PO QHS Patient Comments: TAKE 1 CAPSULE BY MOUTHDDAILY AT BEDTIME. MAY SPRINKLE CONTENTS INTO APPLESAUCE ergocalciferol (vitamin D2) 50,000 UNIT capsule 50,000 unit PO QMONTH potassium chloride 10 MEQ tablet,ER particles/crystals 10 meq PO DAILY brimonidine-timolol 10 ML drops 1 drp EACH EYE BID quetiapine 50 mg tablet extended release 24 hr 100 mg PO DAILY@2000 Patient Comments: TAKE (1) TABLET BY MOUTH(DAILY IN THE MORNING.P bimatoprost 1 DROP bottle 1 drp EACH EYE DAILY@1600 Primary Care Provider: Elsi James Referrals: Elsi James MD [Primary Care Provider] - As soon as possible Activity Restrictions/Additional Instructions: His labs look good today. Follow-up with his primary care physician for further testing for weight loss. He was given a dose of Diflucan today. That may give out of his thrush. I wrote him for another pill that he can take in 3 days if it is not gone. Print Language: Turkish Disposition Disposition: Home, Self Care
[2024-06-01 12:57] LABS: Absolute Lymphocyte Count 1.13 X10^3/uL (0.83-4.51); Basophil# 0.04 X10^3/uL; Basophil% 0.5 % (0-1); Eosinophil# 0.01 X10^3/uL; Eosinophils% 0.1 % (0-5); Hematocrit 41.2 % (40-54); Lymphocyte # 1.13 X10^3/ul (0.83-4.51); Mean Corpuscular Hgb 31.3 pg (27.0-32.0); Mean Corpuscular Volume 92.2 fL (80-94); Mean Platelet Vol. 9.1 fl (6.2-12.0); Monocyte# 0.41 X10^3/uL; Monocyte% 4.7 % (0-10); NRBC Flagged by Analyzer 0 % (0-5); Neutrophil # 6.99 X10^3/uL (2.7-7.7); Neutrophil % 80.8 % (47-70); Platelet Count 272 K/mm3 (150-450); RBC Distribution Width CV 13.3 % (11.6-14.6); RBC Distribution Width SD 45.6 fl (35.1-43.9); Red Blood Count 4.47 M/mm3 (4.6-6.2); White Blood Count 8.7 K/mm3 (4.4-11.0)
[2024-06-01] MEDS: Fluconazole 100 MG Tablet 200 MG PO (13:02)
[2024-06-01 13:12] LABS: ALB/GLOB Ratio 0.9 RATIO (0.9-2.4); AST(SGOT) 23 U/L (15-37); Alanine Aminotransfer ALT/SGPT 33 U/L (16-61); Albumin, Serum 3.4 g/dL (3.2-5.0); Alkaline Phosphatase 79 U/L (45-117); Anion Gap 3 (5-15); BUN 12 mg/dL (7-18); Calcium,Total 9.4 mg/dL (8.5-10.1); Chloride 98 mmol/L (98-107); Creatinine, Serum 0.67 mg/dL (0.70-1.30); EST Glomerular Filtration Rate 124 mL/min (>60); Est Glom Filt Rate - Afr Amer 150 mL/min (>60); Globulin 3.9 g/dL (2.2-4.2); Glucose 88 mg/dL (74-106); Potassium 4.3 mmol/L (3.5-5.1); Protein, Total 7.3 g/dL (6.4-8.2); Sodium Level 136 mmol/L (136-145)
[2024-06-01 13:33] VITALS: BMI 24.6
== END 2024-06-01 13:45 | disposition home or self-care (01) ==
PROVIDERS: Emergency Provider Emergency Medicine; PCP Family Medicine; Visit Provider Emergency Medicine
DX: B37.0 Candidal stomatitis (principal); F79 Unspecified intellectual disabilities; R63.4 Abnormal weight loss
CPT/HCPCS: 80053; 85025; 99283

== ENCOUNTER → 2024-10-13 | Outpatient (CLI) | payer MEDICARE, MEDICAID, SELFPAY | END | disposition home or self-care (01) | LOC: LAB 11:07 | PROVIDERS: PCP Family Medicine; Referring Provider Urology; Visit Provider Urology | DX: N40.1 Benign prostatic hyperplasia with lower urinary tract symptoms (principal) | CPT/HCPCS: 36415; 84153; G0103 ==

== ENCOUNTER → 2024-11-24 | Outpatient (CLI) | payer MEDICARE, MEDICAID, SELFPAY ==
[2024-11-24 12:34] LABS: Hematocrit 36.8 % (40-54); Hemoglobin 12.5 g/dL (13.0-16.5); Mean Corpuscular Hgb 32.1 pg (27.0-32.0); Mean Corpuscular Volume 94.4 fL (80-94); Mean Platelet Vol. 9.6 fl (6.2-12.0); Platelet Count 266 K/mm3 (150-450); RBC Distribution Width CV 13.2 % (11.6-14.6); RBC Distribution Width SD 45.6 fl (35.1-43.9); White Blood Count 5.4 K/mm3 (4.4-11.0)
[2024-11-24 14:36] LABS: ALB/GLOB Ratio 1.4 RATIO (0.9-2.4); AST(SGOT) 18 U/L (<=37); Alanine Aminotransfer ALT/SGPT 12 U/L (<=46); Albumin, Serum 3.8 g/dL (3.4-4.8); Alkaline Phosphatase 66 U/L (40-129); Anion Gap 10 (5-15); BUN 11 mg/dL (4-19); BUN/Creat Ratio 15.4 RATIO (10-20); Calcium,Total 8.8 mg/dL (7.6-11.0); Carbon Dioxide 28.4 mmol/L (21.0-32.0); Chloride 97 mmol/L (98-108); Creatinine, Serum 0.71 mg/dL (0.70-1.20); EST Glomerular Filtration Rate 96 (>60); Globulin 2.6 g/dL (2.2-4.2); Glucose 103 mg/dL (70-99); Magnesium 2.2 mg/dL (1.5-2.2); Protein, Total 6.4 g/dL (5.9-8.4); Sodium Level 135 mmol/L (133-145); Thyroid Stim Hormone (TSH) 0.862 uIU/mL (0.300-4.200); Total Bilirubin 0.36 mg/dL (0.00-1.30)
== END | disposition home or self-care (01) ==
LOC: MFPLAB 11:28
DX: R26.89 Other abnormalities of gait and mobility (principal)
CPT/HCPCS: 36415; 80053; 83735; 84443; 85027